=== PATIENT | female | born 1955 | race Caucasian/White ===

== ENCOUNTER 2019-04-03 20:40 | Inpatient (IN) | payer MEDICARE, OTHER ==
[2019-04-03] MEDS ORDERED: MIDAZOLAM 1 MG/ML 5 ML VIAL IV STA (20:54)
[2019-04-03] MEDS ORDERED: ROCURONIUM BROMIDE 10 MG/ML 10 ML VIAL IV STA (20:54)
[2019-04-03 20:59] LABS: Glucose,Whole Blood 186 mg/dL (75-99)
[2019-04-03] MEDS ORDERED: MIDAZOLAM IV ONE (21:00)
[2019-04-03] MEDS ORDERED: SODIUM CHLORIDE 0.9% IV ONE (21:00)
[2019-04-03 21:02] LABS: Basophils # (A) 0.1 k/uL (0-0.2); Basophils % (A) 1 %; Eosinophils # (A) 0.2 k/uL (0-0.7); Eosinophils % (A) 2 %; HCT 44.9 % (34.0-46.0); HGB 14.7 gm/dL (11.4-16.0); Lymphocytes # (A) 5.4 k/uL (1.0-4.8); Lymphocytes % (A) 48 %; MCH 30.3 pg (25.0-35.0); MCHC 32.7 g/dL (31.0-37.0); MCV 92.6 fL (80.0-100.0); Mean Platelet Volume 7.3; Monocytes # (A) 0.4 k/uL (0-1.0); Monocytes % (A) 4 %; Neutrophils # (A) 4.7 k/uL (1.3-7.7); Neutrophils % (A) 42 %; Platelet Count 177 k/uL (150-450); RBC 4.85 m/uL (3.80-5.40); RDW 14.5 % (11.5-15.5); WBC 11.2 k/uL (3.8-10.6)
[2019-04-03 21:12] LABS: Albumin 4.2 g/dL (3.5-5.0); Magnesium 1.1 mg/dL (1.6-2.3); Phosphorus 1.9 mg/dL (2.5-4.5); Potassium 3.9 mmol/L (3.5-5.1); Total Bilirubin 0.9 mg/dL (0.2-1.3); Total Protein 6.9 g/dL (6.3-8.2)
[2019-04-03] MEDS ORDERED: SODIUM CHLORIDE 0.9% 1,000 ML IV ONE ×3 (21:12→23:00)
[2019-04-03 21:20] LABS: Prothrombin Time 10.9 sec (9.0-12.0)
[2019-04-03 21:22] LABS: Partial Thromboplastin Time 21.6 sec (22.0-30.0)
[2019-04-03 21:24] LABS: Poikilocytosis (M) Present
[2019-04-03] MEDS: MIDAZOLAM HCL 50 MG in SODIUM CHLORIDE 0.9% 40 ML IV SCH ×2 (21:28→21:56)
--- NOTE | 2019-04-03 21:29 | XR ---
EXAMINATION TYPE: XR chest 1V portable DATE OF EXAM: 04/03/2019 COMPARISON: NONE HISTORY: Difficulty breathing TECHNIQUE: Single frontal view of the chest is obtained. FINDINGS: Heart is probably enlarged. There is pulmonary vascular congestion. There is endotracheal tube with the tip 4 cm from the katelynn. There is nasogastric tube. Tip is in the body of the stomach. Thoracic aorta is atheromatous. There is no pleural effusion. IMPRESSION: There is probably congestive heart failure. No pleural fluid.
[2019-04-03] MEDS ORDERED: VANCOMYCIN IV PER PHARMACY 1 EACH MISC MISCELLANE PRN (21:35)
[2019-04-03] MEDS ORDERED: PIPERACILLIN-TAZOBACTAM 3.375 GM in SODIUM CHLORIDE 0.9% 100 ML IVPB STA (21:35)
[2019-04-03] MEDS ORDERED: VANCOMYCIN 2,000 MG in SODIUM CHLORIDE 0.9% 500 ML 500 ML IVPB SCH (21:45)
[2019-04-03] MEDS ORDERED: CEFEPIME 2 GM in SODIUM CHLORIDE 0.9% 100 ML IVPB STA (21:49)
--- NOTE | 2019-04-03 21:52 | ED ---
General Adult HPI - General Chief complaint: Neuro Symptoms/Deficit Stated complaint: STEMI Time Seen by Provider: 04/03/19 20:41 Source: family, EMS, RN notes reviewed, old records reviewed Mode of arrival: EMS - History of Present Illness Initial comments: 62-year-old female found by EMS in a parking lot, unresponsive. Patient transported by EMS. No history available from the patient. Ambient temperature 95 with high humidity. Patient was tachycardic by EMS, she mainta ined her airway and oxygenation, she had stable blood pressure during transport. Normal blood glucose by EMS. - Related Data Allergies Allergy/AdvReac Type Severity Reaction Status Date / Time Penicillins Allergy Unknown Verified 04/03/19 21:46 Childhood Review of Systems ROS Statement: Those systems with pertinent positive or pertinent negative responses have been documented in the HPI. ROS Other: All systems not noted in ROS Statement are negative. Past Medical History Past Medical History: Unable to Obtain History of Any Multi-Drug Resistant Organisms: Unobtainable Past Surgical History: Unable to Obtain Past Psychological History: Unable to Obtain Smoking Status: Unknown if ever smoked Past Alcohol Use History: Unable to Obtain General Exam General appearance: obtunded, obese (Unless) Head exam: Present: atraumatic, normocephalic Eye exam: Present: PERRL. Absent: periorbital swelling, periorbital tenderness ENT exam: Present: mucous membranes dry Neck exam: Present: normal inspection. Absent: meningismus Respiratory exam: Present: respiratory distress, decreased breath sounds. Absent: wheezes, rales Cardiovascular Exam: Present: normal rhythm, tachycardia GI/Abdominal exam: Present: soft, distended. Absent: tenderness, guarding, rebound Extremities exam: Present: normal inspection, normal capillary refill. Absent: pedal edema Expanded Eye Response: (2) open to pain Motor Response: (4) withdraws to pain Skin exam: Present: warm, dry. Absent: diaphoretic Course Vital Signs 04/03/19 04/03/19 04/03/19 20:40 20:46 20:57 Temperature 105.4 F H Pulse Rate 138 H 150 H 151 H Respiratory 24 Rate Blood Pressure 160/149 198/72 192/71 O2 Sat by Pulse 91 L 73 L 99 Oximetry 04/03/19 04/03/19 04/03/19 21:06 21:10 21:20 Temperature 108.0 F H Pulse Rate 142 H 140 H 120 H Respiratory 11 L 12 Rate Blood Pressure 186/72 186/72 144/78 O2 Sat by Pulse 100 100 99 Oximetry 04/03/19 04/03/19 04/03/19 21:29 21:30 21:40 Temperature 106.9 F H Pulse Rate 134 H 134 H 130 H Respiratory 14 11 L 11 L Rate Blood Pressure 159/61 159/61 157/68 O2 Sat by Pulse 100 100 100 Oximetry 04/03/19 04/03/19 04/03/19 21:45 21:50 22:00 Temperature 105.1 F H 96.8 F L Pulse Rate 120 H 111 H Respiratory 11 L 12 Rate Blood Pressure 151/76 121/66 O2 Sat by Pulse 99 100 Oximetry 04/03/19 04/03/19 04/03/19 22:10 22:20 22:30 Temperature 101.1 F H Pulse Rate 120 H 118 H 116 H Respiratory 11 L 11 L 12 Rate Blood Pressure 115/87 149/62 144/68 O2 Sat by Pulse 100 99 100 Oximetry 04/03/19 23:12 Temperature 102.9 F H Pulse Rate 98 Respiratory 12 Rate Blood Pressure 122/51 O2 Sat by Pulse 100 Oximetry EKG Findings - EKG Comments: EKG Findings:: EKG: Wide complex tachycardia rate of 140, suspect right bundle- branch block, QRS duration 128, QTC 520. Repeat EKG sinus rhythm with PAC, left atrial enlargement, right bundle branch block, 97 right, OR interval 174, QRS duration 164, QTC 518 Procedures - Intubation Sedative: Versed Mg Given: 5 Paralytic: Rocuronium Mg Given: 50 Laryngoscope: Paulino Size: 3 Assist Device Used: Bougie ET Tube Size: 7.5 ET Tube Uncuffed: No Tube Secured Depth (cm): 22 Tube Secured Location: lips Tube Placement Confirmation: equal breath sounds bilaterally, no breath sounds over epigastrium, confirmation by capnometry Patient Tolerated Procedure: other Intubation Complications: difficult intubation (Difficult intubation, poorly visualized vocal cords, intubated with bougie, required 2 attempts ) Medical Decision Making - Medical Decision Making 62-year-old female presenting with altered level consciousness, patient is minimally responsive, she is intubated upon arrival. She has a heart rate of 140, rectal temperature of 108. Initial concern for profound heatstroke. She has rapid external cooling with ice, cold fluids, rectal probe is placed. After intubation chest x-rays obtained which negative for focal pneumonia, possible mild heart failure. Head CT is performed this is negative for intracranial hemorrhage or mass effect. She has mild leukocytosis, stable hemoglobin, lactic acid 4.5 mild transaminitis, creatinine kinase 159. She has a EKG showing right bundle branch block with no old for comparison. Heart rate does improve with IV hydration and cooling. After external cooling her temperature is down to 100. She's initially started on benzodiazepines including Versed post, Ativan push, and Versed infusion. She will be admitted to ICU. She is given prophylactic antibiotics although I suspect her presentation is more consistent with heatstroke. Case discussed with both admitting physician and pulmonary occupational therapy technician. Heatstroke, respiratory failure requiring mechanical ventilation. - Lab Data Result diagrams: 04/03/19 20:50 04/03/19 20:50 Lab Results 04/03/19 04/03/19 04/03/19 Range/Units 20:50 20:50 20:50 WBC 11.2 H (3.8-10.6) k/uL RBC 4.85 (3.80-5.40) m/uL Hgb 14.7 (11.4-16.0) gm/dL Hct 44.9 (34.0-46.0) % MCV 92.6 (80.0-100.0) fL MCH 30.3 (25.0-35.0) pg MCHC 32.7 (31.0-37.0) g/dL RDW 14.5 (11.5-15.5) % Plt Count 177 (150-450) k/uL Neutrophils % 42 % Lymphocytes % 48 % Monocytes % 4 % Eosinophils % 2 % Basophils % 1 % Neutrophils # 4.7 (1.3-7.7) k/uL Lymphocytes # 5.4 H (1.0-4.8) k/uL Monocytes # 0.4 (0-1.0) k/uL Eosinophils # 0.2 (0-0.7) k/uL Basophils # 0.1 (0-0.2) k/uL Manual Slide Review Performed Poikilocytosis (manual Present PT (9.0-12.0) sec INR (<1.2) APTT (22.0-30.0) sec Sodium 139 (137-145) mmol/L Potassium 3.9 (3.5-5.1) mmol/L Chloride 98 (98-107) mmol/L Carbon Dioxide 27 (22-30) mmol/L Anion Gap 14 mmol/L BUN 10 (7-17) mg/dL Creatinine 0.71 (0.52-1.04) mg/dL Est GFR (CKD-EPI)AfAm 72 (>60 ml/min/1.73 sqM) Est GFR (CKD-EPI)NonAf 62 (>60 ml/min/1.73 sqM) Glucose 181 H (74-99) mg/dL POC Glucose (mg/dL) (75-99) mg/dL POC Glu Slat Twister ID Plasma Lactic Acid Virgilio 4.5 H* (0.7-2.0) mmol/L Calcium 9.0 (8.4-10.2) mg/dL Phosphorus 1.9 L (2.5-4.5) mg/dL Magnesium 1.1 L (1.6-2.3) mg/dL Total Bilirubin 0.9 (0.2-1.3) mg/dL AST 127 H (14-36) U/L ALT 60 H (9-52) U/L Alkaline Phosphatase 84 (38-126) U/L Creatine Kinase 159 H (30-135) U/L Troponin I (0.000-0.034) ng/mL NT-Pro-B Natriuret Pep pg/mL Total Protein 6.9 (6.3-8.2) g/dL Albumin 4.2 (3.5-5.0) g/dL Urine Color Urine Appearance (Clear) Urine pH (5.0-8.0) Ur Specific [place] (1.001-1.035) Urine Protein (Negative) Urine Glucose (UA) (Negative) Urine Ketones (Negative) Urine Blood (Negative) Urine Nitrite (Negative) Urine Bilirubin (Negative) Urine Urobilinogen (<2.0) mg/dL Ur Leukocyte Esterase (Negative) Urine WBC (0-5) /hpf Amorphous Sediment (None) /hpf Hyaline Casts (0-2) /lpf Urine Mucus (None) /hpf Blood Type Blood Type Recheck Antibody Screen Spec Expiration Date 04/03/19 04/03/19 04/03/19 Range/Units 20:50 20:50 20:50 WBC (3.8-10.6) k/uL RBC (3.80-5.40) m/uL Hgb (11.4-16.0) gm/dL Hct (34.0-46.0) % MCV (80.0-100.0) fL MCH (25.0-35.0) pg MCHC (31.0-37.0) g/dL RDW (11.5-15.5) % Plt Count (150-450) k/uL Neutrophils % % Lymphocytes % % Monocytes % % Eosinophils % % Basophils % % Neutrophils # (1.3-7.7) k/uL Lymphocytes # (1.0-4.8) k/uL Monocytes # (0-1.0) k/uL Eosinophils # (0-0.7) k/uL Basophils # (0-0.2) k/uL Manual Slide Review Poikilocytosis (manual PT 10.9 (9.0-12.0) sec INR 1.0 (<1.2) APTT 21.6 L (22.0-30.0) sec Sodium (137-145) mmol/L Potassium (3.5-5.1) mmol/L Chloride (98-107) mmol/L Carbon Dioxide (22-30) mmol/L Anion Gap mmol/L BUN (7-17) mg/dL Creatinine (0.52-1.04) mg/dL Est GFR (CKD-EPI)AfAm (>60 ml/min/1.73 sqM) Est GFR (CKD-EPI)NonAf (>60 ml/min/1.73 sqM) Glucose (74-99) mg/dL POC Glucose (mg/dL) (75-99) mg/dL POC Glu Slat Twister ID Plasma Lactic Acid Virgilio (0.7-2.0) mmol/L Calcium (8.4-10.2) mg/dL Phosphorus (2.5-4.5) mg/dL Magnesium (1.6-2.3) mg/dL Total Bilirubin (0.2-1.3) mg/dL AST (14-36) U/L ALT (9-52) U/L Alkaline Phosphatase (38-126) U/L Creatine Kinase (30-135) U/L Troponin I 0.024 (0.000-0.034) ng/mL NT-Pro-B Natriuret Pep 240 pg/mL Total Protein (6.3-8.2) g/dL Albumin (3.5-5.0) g/dL Urine Color Urine Appearance (Clear) Urine pH (5.0-8.0) Ur Specific [place] (1.001-1.035) Urine Protein (Negative) Urine Glucose (UA) (Negative) Urine Ketones (Negative) Urine Blood (Negative) Urine Nitrite (Negative) Urine Bilirubin (Negative) Urine Urobilinogen (<2.0) mg/dL Ur Leukocyte Esterase (Negative) Urine WBC (0-5) /hpf Amorphous Sediment (None) /hpf Hyaline Casts (0-2) /lpf Urine Mucus (None) /hpf Blood Type Blood Type Recheck Antibody Screen Spec Expiration Date 04/03/19 04/03/19 04/03/19 Range/Units 20:50 20:58 21:33 WBC (3.8-10.6) k/uL RBC (3.80-5.40) m/uL Hgb (11.4-16.0) gm/dL Hct (34.0-46.0) % MCV (80.0-100.0) fL MCH (25.0-35.0) pg MCHC (31.0-37.0) g/dL RDW (11.5-15.5) % Plt Count (150-450) k/uL Neutrophils % % Lymphocytes % % Monocytes % % Eosinophils % % Basophils % % Neutrophils # (1.3-7.7) k/uL Lymphocytes # (1.0-4.8) k/uL Monocytes # (0-1.0) k/uL Eosinophils # (0-0.7) k/uL Basophils # (0-0.2) k/uL Manual Slide Review Poikilocytosis (manual PT (9.0-12.0) sec INR (<1.2) APTT (22.0-30.0) sec Sodium (137-145) mmol/L Potassium (3.5-5.1) mmol/L Chloride (98-107) mmol/L Carbon Dioxide (22-30) mmol/L Anion Gap mmol/L BUN (7-17) mg/dL Creatinine (0.52-1.04) mg/dL Est GFR (CKD-EPI)AfAm (>60 ml/min/1.73 sqM) Est GFR (CKD-EPI)NonAf (>60 ml/min/1.73 sqM) Glucose (74-99) mg/dL POC Glucose (mg/dL) 186 H (75-99) mg/dL POC Glu Slat Twister ID Sara Driscoll Plasma Lactic Acid Virgilio (0.7-2.0) mmol/L Calcium (8.4-10.2) mg/dL Phosphorus (2.5-4.5) mg/dL Magnesium (1.6-2.3) mg/dL Total Bilirubin (0.2-1.3) mg/dL AST (14-36) U/L ALT (9-52) U/L Alkaline Phosphatase (38-126) U/L Creatine Kinase (30-135) U/L Troponin I (0.000-0.034) ng/mL NT-Pro-B Natriuret Pep pg/mL Total Protein (6.3-8.2) g/dL Albumin (3.5-5.0) g/dL Urine Color Yellow Urine Appearance Cloudy H (Clear) Urine pH 5.5 (5.0-8.0) Ur Specific [place] 1.012 (1.001-1.035) Urine Protein 2+ H (Negative) Urine Glucose (UA) Negative (Negative) Urine Ketones Negative (Negative) Urine Blood Small H (Negative) Urine Nitrite Negative (Negative) Urine Bilirubin Negative (Negative) Urine Urobilinogen <2.0 (<2.0) mg/dL Ur Leukocyte Esterase Negative (Negative) Urine WBC <1 (0-5) /hpf Amorphous Sediment Rare H (None) /hpf Hyaline Casts 2 (0-2) /lpf Urine Mucus Rare H (None) /hpf Blood Type O Negative Blood Type Recheck CABO Indicated Antibody Screen NEGATIVE Spec Expiration Date 04/06/2019 - 235 Critical Care Time Critical Care Time: Yes Total Critical Care Time: 95 Disposition Clinical Impression: Heat stroke, Respiratory failure Disposition: ADMITTED IP TO THIS HOSP Condition: Serious Is patient prescribed a controlled substance at d/c from ED?: No Referrals: None,Stated [Primary Care Provider] - 1-2 days Time of Disposition: 23:39
[2019-04-03] MEDS ORDERED: LORazepam 2 MG/ML INJ IV STA (22:08)
[2019-04-03 22:10] LABS: Amorphous Sediment,Urine Rare /hpf; Appearance,Urine Cloudy (Clear); Bilirubin,Urine Negative (Negative); Blood,Urine Small (Negative); Color,Urine Yellow; Glucose,Urine (UA) Negative (Negative); Hyaline Casts,Urine 2 /lpf (0-2); Ketones,Urine Negative (Negative); Leukocyte Esterase,Urine Negative (Negative); Mucus,Urine Rare /hpf; Nitrite,Urine Negative (Negative); PH, Urine 5.5 (5.0-8.0); Protein,Urine 2+ (Negative); Specific Gravity,Urine 1.012 (1.001-1.035); Urobilinogen,Urine <2.0 mg/dL (<2.0); WBC,Urine <1 /hpf (0-5)
--- NOTE | 2019-04-03 23:04 | CT ---
EXAM: CT Head Without Intravenous Contrast CLINICAL HISTORY: ITS.REASON CT Reason: weakness TECHNIQUE: Axial computed tomography images of the head/brain without intravenous contrast. This CT exam was performed using one or more of the following dose reduction techniques: automated exposure control, adjustment of the mA and/or kV according to patient size, and/or use of iterative reconstruction technique. COMPARISON: No relevant prior studies available. FINDINGS: Brain: No hemorrhage. No edema. Ventricles: Unremarkable. No ventriculomegaly. Bones/joints: No acute fracture. Soft tissues: Unremarkable. Sinuses: No fluid levels. Mastoid air cells: Nonspecific soft tissue in the right mastoid cavity IMPRESSION: No acute findings.
[2019-04-03] MEDS: MAGNESIUM SULFATE-D5W PMX 1 GM in DEXTROSE/WATER 1 100ML.BAG IVPB SCH (23:07)
[2019-04-03] MEDS ORDERED: NALOXONE 0.4 MG/ML 1 ML VIAL IV PRN (23:24)
[2019-04-03 23:42] LABS: ABG Base Excess -2.5 mmol/L; ABG HCO3 24 mmol/L (21-25); ABG Oxygen Saturation 99.4 % (94-97); ABG PCO2 52 mmHg (35-45); ABG PH 7.28 (7.35-7.45); ABG PO2 181 mmHg (83-108); ABG TCO2 26 mmol/L (19-24); Allen Test Performed? Yes
[2019-04-04] MEDS: MAGNESIUM SULFATE-D5W PMX 1 GM in DEXTROSE/WATER 1 100ML.BAG IVPB SCH ×3 (00:01→03:00)
[2019-04-04] MEDS: SODIUM CHLORIDE 0.9% 1,000 ML IV SCH ×4 (00:10→23:52)
[2019-04-04 00:32] LABS: Glucose,Whole Blood 223 mg/dL (75-99)
[2019-04-04] MEDS ORDERED: LORazepam 2 MG/ML INJ IV STA (00:39)
--- NOTE | 2019-04-04 01:00 | P.HPIM ---
History of Present Illness H&P Date: 04/04/19 Chief Complaint: Found down by police 62-year-old female apparently was a local [place]. She was found by police unconscious and was brought to the hospital. Initially was thought to have cardiac event however upon obtaining vital signs she was found to be hyperthermic with rectal temperature of 108 patient was suspected to have a heat stroke she was very dry. Patient was resuscitated given aggressive IV fluid hydration was actively bringing her temperature down. Patient was intubated due to being unconscious unable to protect airways she was found to be in acute hypoxic and hypercapnic respiratory failure. Computed tomography scan of the head showed no acute abnormalities Chest x-ray was negative Review of Systems ROS unobtainable: due to mental status Past Medical History Past Medical History: Unable to Obtain History of Any Multi-Drug Resistant Organisms: Unobtainable Past Surgical History: Unable to Obtain Past Psychological History: Unable to Obtain Smoking Status: Unknown if ever smoked Past Alcohol Use History: Unable to Obtain - Past Family History Family Family Medical History: Unable to Obtain Medications and Allergies Home Medications and Allergies Comment(s): Cannot obtain a verify this point due to patient mental status Allergies Allergy/AdvReac Type Severity Reaction Status Date / Time Penicillins Allergy Unknown Verified 04/03/19 21:46 Childhood Physical Exam Vitals: Vital Signs Temp Pulse Pulse Resp BP Pulse Ox 04/04/19 00:18 102.2 F H 86 24 113/51 97 04/03/19 23:43 110 H 28 H 04/03/19 23:30 96 30 H 111/50 100 04/03/19 23:20 97 28 H 122/51 100 04/03/19 23:12 102.9 F H 98 12 122/51 100 04/03/19 22:30 101.1 F H 116 H 12 144/68 100 04/03/19 22:20 118 H 11 L 149/62 99 04/03/19 22:10 120 H 11 L 115/87 100 04/03/19 22:00 96.8 F L 111 H 12 121/66 100 04/03/19 21:50 120 H 11 L 151/76 99 04/03/19 21:45 105.1 F H 04/03/19 21:40 130 H 11 L 157/68 100 04/03/19 21:30 134 H 11 L 159/61 100 04/03/19 21:29 106.9 F H 134 H 14 159/61 100 04/03/19 21:20 120 H 12 144/78 99 04/03/19 21:10 108.0 F H 140 H 11 L 186/72 100 04/03/19 21:06 142 H 186/72 100 04/03/19 20:57 151 H 192/71 99 04/03/19 20:46 150 H 198/72 73 L 04/03/19 20:40 105.4 F H 138 H 24 160/149 91 L Intake and Output 04/03/19 04/03/19 04/04/19 14:59 22:59 06:59 Intake Total 17.5 Output Total 400 Balance -400 17.5 Intake: Intake, IV Titration 17.5 Amount Midazolam HCl 50 mg In 17.5 Sodium Chloride 0.9% 40 ml @ 1 MG/HR 1 mls/hr IV .Q24H [facility] Rx#:[id number] Output: Urine 400 Uretheral (Fischer) 400 Other: Weight 130.453 kg Constitutional: Patient intubated and sedated, ventilatory support, Fischer catheter in place Eyes: Anicteric sclerae, moist conjunctiva, Pupils equal round reactive to light ENMT: NC/AT Could not examine oropharynx due to OT tube Neck: Supple, FROM, no masses, or JVD No carotid bruits No thyromegaly Lungs: Clear to auscultation Clear to percussion Patient sedated on ventilator support Cardiovascular: Heart regular in rate and rhythm, No murmurs, gallops, or rubs No peripheral edema Abdominal: Soft, obese limiting exam Nontender, no guarding, rebound or rigidity Abdomen moving with respiration Normoactive bowel sounds No hepatomegaly, No splenomegaly No palpable mass No abdominal wall hernia noted Skin: No dry skin, currently normal temperature to the touch, No induration No subcutaneous nodules No rash, lesions No ulcers Extremities: No digital cyanosis No clubbing Pedal pulses intact on the right foot, left foot is in surgical boot due to recent surgery Radial pulses intact and symmetrical Psychiatric: Intubated and deeply sedated Neuro cannot perform neuro exam at this point due to patient being intubated and deeply sedated Lymphatics: no palpable cervical or supraclavicular , or inguinal lymph nodes Results CBC & Chem 7: 04/03/19 20:50 07/05/19 20:50 Labs: Abnormal Lab Results - Last 24 Hours (Table) 04/03/19 04/03/19 04/03/19 Range/Units 20:50 20:50 20:50 WBC 11.2 H (3.8-10.6) k/uL Lymphocytes # 5.4 H (1.0-4.8) k/uL APTT (22.0-30.0) sec ABG pH (7.35-7.45) ABG pCO2 (35-45) mmHg ABG pO2 (83-108) mmHg ABG Total CO2 (19-24) mmol/L ABG O2 Saturation (94-97) % Glucose 181 H (74-99) mg/dL POC Glucose (mg/dL) (75-99) mg/dL Plasma Lactic Acid Virgilio 4.5 H* (0.7-2.0) mmol/L Phosphorus 1.9 L (2.5-4.5) mg/dL Magnesium 1.1 L (1.6-2.3) mg/dL AST 127 H (14-36) U/L ALT 60 H (9-52) U/L Creatine Kinase 159 H (30-135) U/L Urine Appearance (Clear) Urine Protein (Negative) Urine Blood (Negative) Amorphous Sediment (None) /hpf Urine Mucus (None) /hpf 04/03/19 04/03/19 04/03/19 Range/Units 20:50 20:58 21:33 WBC (3.8-10.6) k/uL Lymphocytes # (1.0-4.8) k/uL APTT 21.6 L (22.0-30.0) sec ABG pH (7.35-7.45) ABG pCO2 (35-45) mmHg ABG pO2 (83-108) mmHg ABG Total CO2 (19-24) mmol/L ABG O2 Saturation (94-97) % Glucose (74-99) mg/dL POC Glucose (mg/dL) 186 H (75-99) mg/dL Plasma Lactic Acid Virgilio (0.7-2.0) mmol/L Phosphorus (2.5-4.5) mg/dL Magnesium (1.6-2.3) mg/dL AST (14-36) U/L ALT (9-52) U/L Creatine Kinase (30-135) U/L Urine Appearance Cloudy H (Clear) Urine Protein 2+ H (Negative) Urine Blood Small H (Negative) Amorphous Sediment Rare H (None) /hpf Urine Mucus Rare H (None) /hpf 04/03/19 04/04/19 Range/Units 23:39 00:13 WBC (3.8-10.6) k/uL Lymphocytes # (1.0-4.8) k/uL APTT (22.0-30.0) sec ABG pH 7.28 L (7.35-7.45) ABG pCO2 52 H (35-45) mmHg ABG pO2 181 H (83-108) mmHg ABG Total CO2 26 H (19-24) mmol/L ABG O2 Saturation 99.4 H (94-97) % Glucose (74-99) mg/dL POC Glucose (mg/dL) 223 H (75-99) mg/dL Plasma Lactic Acid Virgilio (0.7-2.0) mmol/L Phosphorus (2.5-4.5) mg/dL Magnesium (1.6-2.3) mg/dL AST (14-36) U/L ALT (9-52) U/L Creatine Kinase (30-135) U/L Urine Appearance (Clear) Urine Protein (Negative) Urine Blood (Negative) Amorphous Sediment (None) /hpf Urine Mucus (None) /hpf Assessment and Plan Assessment: 62-year-old female was found down by police in the outdoors at the local fair unconscious. Patient admitted as an inpatient with anticipated to stay more than 48 hours due to suspected he stroke patient was intubated due to acute metabolic encephalopathy and acute hypoxic/hypercapnic respiratory failure Plan: heat stroke acute metabolic encephalopathy acute hypoxic ,/ hypercapnic respiratory failure lactic acidosis hypomagnesemia/hypophosphatemia diabetes mellitus CAMELIA morbid obesity Patient was intubated in the ED and currently sedated Aggressive IV fluid hydration External cooling of Patient temperature Close monitoring of vital signs and temperature Admission to the ICU Replace electrolytes Ventilator care Empiric antibiotic therapy Follow-up cultures Surrogate decision-maker: Patient's Sr. CODE STATUS: Full code DVT prophylaxis: Heparin subcu Discussed with: Patient, ER, RN Anticipated discharge: 48-[address]: *Pending clinical course A total of 60 minutes was spent on the care of this complex patient more than 50% of the time was spent in counseling and care coordination.
[2019-04-04 01:02] LABS: Glucose,Whole Blood 235 mg/dL (75-99)
[2019-04-04] MEDS: MIDAZOLAM HCL 50 MG in SODIUM CHLORIDE 0.9% 40 ML IV SCH (01:11)
[2019-04-04] MEDS: PROPOFOL 1,000 MG in EMPTY BAG 1 BAG IV SCH ×4 (02:00→10:22)
[2019-04-04 02:21] LABS: Amphetamine Screen,Urine Not Detected (NotDetected); Barbiturate Screen,Urine Not Detected (NotDetected); Benzodiazepines Screen,Urine Detected (NotDetected); Cocaine Screen,Urine Not Detected (NotDetected); Methadone Screen, Urine Not Detected (NotDetected); Opiate Screen,Urine Detected (NotDetected); Oxycodone Screen, Urine Not Detected (NotDetected); Phencyclidine Screen,Urine Not Detected (NotDetected); Tricyclic Antidepressant,Urine Not Detected (NotDetected); Urn Cannabinoid Scrn Not Detected (NotDetected)
[2019-04-04 04:47] LABS: ABG Base Excess -1.8 mmol/L; ABG HCO3 25 mmol/L (21-25); ABG Oxygen Saturation 98.1 % (94-97); ABG PCO2 53 mmHg (35-45); ABG PH 7.28 (7.35-7.45); ABG PO2 108 mmHg (83-108); ABG TCO2 27 mmol/L (19-24); Allen Test Performed? Yes
[2019-04-04 06:05] LABS: Glucose,Whole Blood 256 mg/dL (75-99)
[2019-04-04] MEDS: INSULIN ASPART (NovoLOG) 100 UNIT/ML VIAL SQ SCH ×4 (06:06→23:58)
--- NOTE | 2019-04-04 07:22 | XR ---
EXAMINATION TYPE: XR chest 1V portable DATE OF EXAM: 04/04/2019 COMPARISON: 04/03/2019 HISTORY: Shortness of breath TECHNIQUE: Single frontal view of the chest is obtained. FINDINGS: ET tube and NG tube stable. Atherosclerotic change aorta. Mild cardiomegaly but consolidat ion small effusion. Interstitial prominence. No pneumothorax. IMPRESSION: Stable pleural-parenchymal changes correlate for CHF. Otherwise consider pneumonia.
[2019-04-04] MEDS ORDERED: INSULIN ASPART (NovoLOG) 100 UNIT/ML VIAL SQ SCH (07:30)
[2019-04-04 07:41] LABS: ALT 78 U/L (9-52); AST 130 U/L (14-36); African American GFR (CKD) >90 (>60 ml/min/1.73 sqM); Albumin 3.6 g/dL (3.5-5.0); Alkaline Phosphatase 55 U/L (38-126); Anion Gap 14 mmol/L; Blood Urea Nitrogen 18 mg/dL (7-17); Calcium 8.1 mg/dL (8.4-10.2); Carbon Dioxide 19 mmol/L (22-30); Chloride 109 mmol/L (98-107); Glucose 218 mg/dL (74-99); Magnesium 2.4 mg/dL (1.6-2.3); Phosphorus 4.6 mg/dL (2.5-4.5); Sodium 142 mmol/L (137-145); Total Bilirubin 1.1 mg/dL (0.2-1.3); Total Protein 6.2 g/dL (6.3-8.2)
[2019-04-04 07:46] LABS: HCT 42.1 % (34.0-46.0); HGB 13.8 gm/dL (11.4-16.0); Hypochromasia Slight; MCH 31.8 pg (25.0-35.0); MCHC 32.8 g/dL (31.0-37.0); MCV 96.7 fL (80.0-100.0); Mean Platelet Volume 7.4; RBC 4.35 m/uL (3.80-5.40); RDW 14.5 % (11.5-15.5); WBC 9.8 k/uL (3.8-10.6)
[2019-04-04] MEDS ORDERED: PIPERACILLIN-TAZOBACTAM 3.375 GM in SODIUM CHLORIDE 0.9% 100 ML IVPB SCH (08:00)
[2019-04-04 08:01] LABS: Potassium 4.8 mmol/L (3.5-5.1)
[2019-04-04 08:21] LABS: Platelet Count 74 k/uL (150-450)
[2019-04-04] MEDS: HEPARIN SODIUM,PORCINE 5,000 UNIT/ML 1 ML VIAL SQ SCH ×2 (08:32→15:58)
[2019-04-04] MEDS: CHLORHEXIDINE GLUCONATE 15 ML CUP MUCOUS MEM SCH ×2 (08:32→23:52)
[2019-04-04] MEDS: VANCOMYCIN 2,000 MG in SODIUM CHLORIDE 0.9% 500 ML 500 ML IVPB SCH (12:25)
[2019-04-04 12:27] LABS: Glucose,Whole Blood 128 mg/dL (75-99)
[2019-04-04 12:29] LABS: ABG HCO3 28 mmol/L (21-25); ABG Oxygen Saturation 98.3 % (94-97); ABG PCO2 51 mmHg (35-45); ABG PH 7.34 (7.35-7.45); ABG PO2 118 mmHg (83-108); ABG TCO2 29 mmol/L (19-24); Allen Test Performed? Yes
--- NOTE | 2019-04-04 12:45 | P.PN ---
Progress Note - Text Progress Note Date: 04/04/19 62-year-old female with unknown PMH is brought to the ED by EMS after being found by police in the parking lot, unresponsive. In the ED, she was found to have an altered level of consciousness and was minimally responsive, intubated upon arrival. Rectal temperature of 108F. Rapid cooling with ice and cold fluids was started and patient was transferred to the ICU. She was started on vancomycin and cefepime empirically for concerns of sepsis. Patient was seen and examined. No acute events overnight. Continues to be on the ventilator. Per RN, patient is responding to commands and an attempt might be made for vent liberation by the ICU attending. This morning chest x-ray shows stable changes correlating with CHF, consider pneumonia. Patient is on full ventilator settings with tidal volume 450, FiO2 50% and PEEP of 5. Her temperature is currently 99F. Heatstroke Acute metabolic encephalopathy likely secondary to hyperthermia Acute hypoxic hypercarbic respiratory failure Lactic acidosis Transaminitis with hypocalcemia and hyperphosphatemia and hypermagnesemia Plans: Plans for full ventilator support, attempted to be weaned by ICU attending. Telemetry monitoring. Follow ABG. Lactic acid 4.5 to 3.6. Likely secondary to dehydration. ABG showed respiratory metabolic acidosis. Plans: Full ventilator support to maintain oxygenation. Continue normal saline at 150 mL per hour. Follow repeat lactic acid. No signs of infection, could probably discontinue IV antibiotics, will wait on ICU attending recommendations. AST 130, ALT 78, phosphorus of 4.6, magnesium 2.4 and calcium 8.1. Possibly related to muscle damage. Renal function is within normal limits. Plans: Continue IVF as mentioned above. Daily CMP. Follow creatinine kinase. Monitor and replace electrolytes. Patient is pending clinical improvement. Her prognosis is guarded at this time. Attempt vent liberation as per ICU attending.
--- NOTE | 2019-04-04 13:08 | P.CNPUL ---
History of Present Illness Consult date: 04/04/19 Chief complaint: Hyperthermia History of present illness: 62-year-old female apparently was a local fair for march celebrations. She was found by police unconscious and was brought to the hospital. Initially was thought to have cardiac event however upon obtaining vital signs she was found to be hyperthermic with rectal temperature of 108 patient was suspected to have a heat stroke she was very dry. Patient was resuscitated given aggressive IV fluid hydration was actively bringing her temperature down. Patient was intubated due to being unconscious unable to protect airways she was found to be in acute hypoxic and hypercapnic respiratory failure. Computed tomography scan of the head showed no acute abnormalities. The chest x-ray is negative. Urine toxin was positive for opiates and benzodiazepines. Otherwise no other street drugs. Overnight the patient was kept on a mechanical ventilator. She was well sedated with propofol and she was, comfortable. She was able to squeeze to deep painful stimulation this morning. A sedation holiday was given. Meanwhile, on a mechanical ventilator with an FiO2 of 50% and PEEP of 5, the patient was also on a tidal volume of 450 with a rate of 16 and the blood gas showed a pH of 7.28 with a pCO2 of 53 and pO2 of 108. Rest of the blood work showed no significant abnormalities in no evidence of rhabdomyolysis. CPK was within normal limits. White cell count is at 9.8. Pl atelet count dropped down to 74,000. Urinalysis is negative. No intake of any neuroleptics. No intake of any anticholinergic or exposure to a anticholinergic agents. No signs of any septicemia at this point in time. Morning temperature is down to 99.0. I was able to discontinue the sedation. Assess the patient's mental status to check weaning parameters which showed a tidal volume of 494 wi th a vital Of 1.2 L and RSBI of 34 with a minute ventilation of 12.6. The blood gases while on CPAP showed a pH of 7.34 with a pCO2 of 51 and pO2 of 118.. No other information is available on this patient's history and she came in initially as a [facility] Review of Systems ROS unobtainable: due to endotracheal tube Past Medical History Past Medical History: Unable to Obtain Additional Past Medical History / Comment(s): Not available at a time of admission History of Any Multi-Drug Resistant Organisms: Unobtainable Past Surgical History: Unable to Obtain Additional Past Surgical History / Comment(s): Not available at time of admission and on examination there is evidence of bilateral mastectomy and transmetatarsal amputation of the left foot Past Psychological History: Unable to Obtain Smoking Status: Unknown if ever smoked Past Alcohol Use History: Unable to Obtain - Past Family History Family Family Medical History: Unable to Obtain Medications and Allergies Home Medications Medication Instructions Recorded Confirmed Type Unable To Assess [Unable to Assess] 04/04/19 04/04/19 History Allergies Allergy/AdvReac Type Severity Reaction Status Date / Time Penicillins Allergy Unknown Verified 04/03/19 21:46 Childhood Physical Exam Vitals: Vital Signs Temp Pulse Pulse Resp BP Pulse Ox 04/04/19 12:00 99.0 F 85 22 129/52 98 04/04/19 11:30 82 16 130/58 97 04/04/19 11:00 83 20 120/45 98 04/04/19 10:30 81 21 112/45 99 04/04/19 10:00 79 18 105/47 99 04/04/19 09:30 78 17 113/49 98 04/04/19 09:00 78 14 101/49 97 04/04/19 08:30 77 14 101/44 98 04/04/19 08:00 100.1 F H 78 14 108/49 98 04/04/19 07:30 81 14 103/48 98 04/04/19 07:00 100.3 F H 82 18 109/48 98 04/04/19 06:30 84 21 114/58 98 04/04/19 06:00 100.4 F H 82 22 102/45 98 04/04/19 05:30 81 24 103/42 98 04/04/19 05:00 100.4 F H 81 19 101/45 97 04/04/19 04:30 80 23 97/47 97 04/04/19 04:00 80 19 94/43 97 04/04/19 03:30 80 20 98/42 97 04/04/19 03:00 100.9 F H 80 20 88/42 97 04/04/19 02:45 81 21 96/43 97 04/04/19 02:30 101.1 F H 82 21 91/42 97 04/04/19 02:15 82 22 98/45 97 04/04/19 02:00 85 24 120/50 97 04/04/19 01:45 101.4 F H 90 17 120/49 98 04/04/19 01:30 86 23 102/45 97 04/04/19 01:15 84 26 H 107/51 96 04/04/19 01:00 84 29 H 100/50 96 04/04/19 00:58 84 22 97 04/04/19 00:30 101.4 F H 87 31 H 120/56 98 04/04/19 00:18 102.2 F H 86 24 113/51 97 04/04/19 00:15 87 32 H 113/51 97 04/04/19 00:00 90 29 H 112/55 96 04/03/19 23:45 101.7 F H 93 29 H 118/53 04/03/19 23:43 110 H 28 H 04/03/19 23:30 96 30 H 111/50 100 04/03/19 23:20 97 28 H 122/51 100 04/03/19 23:12 102.9 F H 98 12 122/51 100 04/03/19 22:30 101.1 F H 116 H 12 144/68 100 04/03/19 22:20 118 H 11 L 149/62 99 04/03/19 22:10 120 H 11 L 115/87 100 04/03/19 22:00 111 H 12 121/66 100 04/03/19 21:50 120 H 11 L 151/76 99 04/03/19 21:45 105.1 F H 04/03/19 21:40 130 H 11 L 157/68 100 04/03/19 21:30 134 H 11 L 159/61 100 04/03/19 21:29 106.9 F H 134 H 14 159/61 100 04/03/19 21:20 120 H 12 144/78 99 04/03/19 21:10 108.0 F H 140 H 11 L 186/72 100 04/03/19 21:06 142 H 186/72 100 04/03/19 20:57 151 H 192/71 99 04/03/19 20:46 150 H 198/72 73 L 04/03/19 20:40 105.4 F H 138 H 24 160/149 91 L Intake and Output 04/03/19 04/04/19 04/04/19 22:59 06:59 14:59 Intake Total 0708.322 3362.407 Output Total 400 2542 1280 Balance -400 -688.094 -274.593 Intake: IV 1700 900 Magnesium Sulfate-D5w Pmx 300 1 gm In Dextrose/Water 1 100ml.bag @ 100 mls/hr IVPB Q1H NANC[facility] Rx#: [id number] Sodium Chloride 0.9% 1, 900 900 000 ml @ 150 mls/hr IV . Q6H40M NANCY Rx#:[id number] Vancomycin 2,000 mg In 500 Sodium Chloride 0.9% 500 ml 500 ml @ 167 mls/hr IVPB Q16H NANCY Rx#: [id number] Intake, IV Titration 153.906 105.407 Amount Midazolam HCl 50 mg In 30.033 Sodium Chloride 0.9% 40 ml @ 1 MG/HR 1 mls/hr IV .Q24H NANCY Rx#:[id number] Propofol 1,000 mg In 123.873 105.407 Empty Bag 1 bag @ Titrate IV .Q0M NANCY Rx#: [id number] Output: Urine 166 333 5824 Uretheral (Fischer) 400 Stool 2000 Other: Voiding Method Indwelling Catheter Indwelling Catheter # Bowel Movements 1 Weight 130.453 kg Gen. appearance, comfortable likely distress orogastric and orotracheal tube are both in place. She is following commands and squeezing while on a mechanical ventilator. She is a process of getting a sedation holiday and CPAP trial Head exam was generally normal. There was no scleral icterus or corneal arcus. Mucous membranes were moist. Neck was supple and without jugular venous distension, thyromegaly, or carotid bruits. Carotids were easily palpable bilaterally. There was no adenopathy. The patient has bilateral mastectomy Lungs were clear to auscultation and percussion, and with normal diaphragmatic excursion. No wheezes or rales were noted. Cardiac exam revealed the PMI to be normally situated and sized. The rhythm was regular and no extrasystoles were noted during several minutes of auscultation. The first and second heart sounds were normal and physiologic splitting of the second heart sound was noted. There were no murmurs, rubs, clicks, or gallops. Abdominal exam revealed normal bowel sounds. The abdomen was soft, non-tender, and without masses, organomegaly, or appreciable enlargement of the abdominal aorta. Examination of the extremities revealed easily palpable radial, femoral and pedal pulses. There was no cyanosis, clubbing or edema. The patient has a metatarsal amputation of the left foot Examination of the skin revealed no evidence of significant rashes, suspicious appearing nevi or other concerning lesions. Neurologic exam is nonfocal. Results - Laboratory Findings CBC and BMP: 04/04/19 07:05 04/04/19 06:10 ABG ABG pH 7.34 (7.35-7.45) L 04/04/19 12:27 ABG pCO2 51 mmHg (35-45) H 04/04/19 12:27 ABG pO2 118 mmHg (83-108) H 04/04/19 12:27 ABG O2 Saturation 98.3 % (94-97) H 04/04/19 12:27 PT/INR, D-dimer PT 10.9 sec (9.0-12.0) 04/03/19 20:50 INR 1.0 (<1.2) 04/03/19 20:50 Abnormal lab findings: Abnormal Labs 04/03/19 04/03/19 04/03/19 20:50 20:50 20:50 WBC 11.2 H Plt Count Lymphocytes # 5.4 H APTT ABG pH ABG pCO2 ABG pO2 ABG HCO3 ABG Total CO2 ABG O2 Saturation Chloride Carbon Dioxide BUN Glucose 181 H POC Glucose (mg/dL) Plasma Lactic Acid Virgilio 4.5 H* Calcium Phosphorus 1.9 L Magnesium 1.1 L AST 127 H ALT 60 H Creatine Kinase 159 H Total Protein Urine Appearance Urine Protein Urine Blood Amorphous Sediment Urine Mucus Urine Opiates Screen U Benzodiazepines Scrn 04/03/19 04/03/19 04/03/19 20:50 20:58 21:33 WBC Plt Count Lymphocytes # APTT 21.6 L ABG pH ABG pCO2 ABG pO2 ABG HCO3 ABG Total CO2 ABG O2 Saturation Chloride Carbon Dioxide BUN Glucose POC Glucose (mg/dL) 186 H Plasma Lactic Acid Virgilio Calcium Phosphorus Magnesium AST ALT Creatine Kinase Total Protein Urine Appearance Cloudy H Urine Protein 2+ H Urine Blood Small H Amorphous Sediment Rare H Urine Mucus Rare H Urine Opiates Screen U Benzodiazepines Scrn 04/03/19 04/04/19 04/04/19 23:39 00:13 00:55 WBC Plt Count Lymphocytes # APTT ABG pH 7.28 L ABG pCO2 52 H ABG pO2 181 H ABG HCO3 ABG Total CO2 26 H ABG O2 Saturation 99.4 H Chloride Carbon Dioxide BUN Glucose POC Glucose (mg/dL) 223 H 235 H Plasma Lactic Acid Virgilio Calcium Phosphorus Magnesium AST ALT Creatine Kinase Total Protein Urine Appearance Urine Protein Urine Blood Amorphous Sediment Urine Mucus Urine Opiates Screen U Benzodiazepines Scrn 04/04/19 04/04/19 04/04/19 02:00 02:15 04:46 WBC Plt Count Lymphocytes # APTT ABG pH 7.28 L ABG pCO2 53 H ABG pO2 ABG HCO3 ABG Total CO2 27 H ABG O2 Saturation 98.1 H Chloride Carbon Dioxide BUN Glucose POC Glucose (mg/dL) Plasma Lactic Acid Virgilio 3.6 H* Calcium Phosphorus Magnesium AST ALT Creatine Kinase Total Protein Urine Appearance Urine Protein Urine Blood Amorphous Sediment Urine Mucus Urine Opiates Screen Detected H U Benzodiazepines Scrn Detected H 04/04/19 04/04/19 04/04/19 06:02 06:10 07:05 WBC Plt Count 74 L D Lymphocytes # APTT ABG pH ABG pCO2 ABG pO2 ABG HCO3 ABG Total CO2 ABG O2 Saturation Chloride 109 H Carbon Dioxide 19 L BUN 18 H Glucose 218 H POC Glucose (mg/dL) 256 H Plasma Lactic Acid Virgilio Calcium 8.1 L Phosphorus 4.6 H Magnesium 2.4 H AST 130 H ALT 78 H Creatine Kinase Total Protein 6.2 L Urine Appearance Urine Protein Urine Blood Amorphous Sediment Urine Mucus Urine Opiates Screen U Benzodiazepines Scrn 04/04/19 04/04/19 12:11 12:27 WBC Plt Count Lymphocytes # APTT ABG pH 7.34 L ABG pCO2 51 H ABG pO2 118 H ABG HCO3 28 H ABG Total CO2 29 H ABG O2 Saturation 98.3 H Chloride Carbon Dioxide BUN Glucose POC Glucose (mg/dL) 128 H Plasma Lactic Acid Virgilio Calcium Phosphorus Magnesium AST ALT Creatine Kinase Total Protein Urine Appearance Urine Protein Urine Blood Amorphous Sediment Urine Mucus Urine Opiates Screen U Benzodiazepines Scrn - Diagnostic Findings Chest x-ray: image reviewed Assessment and Plan Plan: 1 acute hyperthermia, this is most likely environmental are rather than drug induced or sepsis and the patient is improved with cooling 2 altered mental status secondary to above 3 acute hypoxic/hypercapnic respiratory failure, chest x-ray within normal and the patient is the process of weaning 4 lactic acidosis, improving and the patient's lactic acid level is down to 3.6 5 electrodes imbalance 6 obesity with a BMI of 52 Plan Proceed with completing the sedation holiday and the CPAP trial. I'm going to extubate this patient. We'll have hopefully further information on her past medical history postextubation as the patient should be able to communicate and volunteer more history. The patient is otherwise doing well and she is hemodynamically stable. Continue the process. Continue IV fluids. Cooling has been performed. She is on IV Protonix and she is on subcu heparin. Will follow.
[2019-04-04 14:51] VITALS: BMI 52.6
[2019-04-04 17:29] LABS: Glucose,Whole Blood 113 mg/dL (75-99)
[2019-04-05 00:09] LABS: Glucose,Whole Blood 117 mg/dL (75-99)
[2019-04-05] MEDS: HEPARIN SODIUM,PORCINE 5,000 UNIT/ML 1 ML VIAL SQ SCH ×2 (00:16→08:12)
[2019-04-05] MEDS: VANCOMYCIN 2,000 MG in SODIUM CHLORIDE 0.9% 500 ML 500 ML IVPB SCH (00:16)
[2019-04-05] MEDS: SODIUM CHLORIDE 0.9% 1,000 ML IV SCH ×2 (07:08→11:39)
[2019-04-05] MEDS: INSULIN ASPART (NovoLOG) 100 UNIT/ML VIAL SQ SCH ×4 (07:20→20:28)
--- NOTE | 2019-04-05 07:27 | XR ---
EXAMINATION TYPE: XR chest 1V portable DATE OF EXAM: 04/05/2019 COMPARISON: 04/04/2019 HISTORY: ET and NG tube have been removed TECHNIQUE: Single frontal view of the chest is obtained. FINDINGS: Atherosclerotic change aorta. Mild cardiomegaly but consolidation small effusion. Intersti tial prominence. No pneumothorax. IMPRESSION: Stable pleural-parenchymal changes correlate for CHF. Otherwise consider pneumonia.
[2019-04-05 07:28] LABS: Glucose,Whole Blood 242 mg/dL (75-99)
[2019-04-05 08:03] LABS: Basophils % (A) 0 %; Eosinophils % (A) 1 %; HCT 38.1 % (34.0-46.0); HGB 12.3 gm/dL (11.4-16.0); Lymphocytes # (A) 1.2 k/uL (1.0-4.8); Lymphocytes % (A) 15 %; MCH 30.6 pg (25.0-35.0); MCHC 32.2 g/dL (31.0-37.0); Mean Platelet Volume 7.6; Monocytes # (A) 0.4 k/uL (0-1.0); Monocytes % (A) 5 %; Neutrophils # (A) 6.2 k/uL (1.3-7.7); Neutrophils % (A) 77 %; RBC 4.01 m/uL (3.80-5.40); RDW 14.5 % (11.5-15.5)
[2019-04-05 08:16] LABS: ALT 99 U/L (9-52); AST 105 U/L (14-36); African American GFR (CKD) >90 (>60 ml/min/1.73 sqM); Albumin 3.1 g/dL (3.5-5.0); Alkaline Phosphatase 67 U/L (38-126); Anion Gap 6 mmol/L; Blood Urea Nitrogen 9 mg/dL (7-17); Calcium 7.2 mg/dL (8.4-10.2); Carbon Dioxide 27 mmol/L (22-30); Chloride 107 mmol/L (98-107); Glucose 169 mg/dL (74-99); Magnesium 2.1 mg/dL (1.6-2.3); Platelet Count 59 k/uL (150-450); Potassium 3.1 mmol/L (3.5-5.1); Sodium 140 mmol/L (137-145); Total Protein 5.5 g/dL (6.3-8.2)
[2019-04-05] MEDS ORDERED: Potassium Replacement Protocol 1 EACH MISC MISCELLANE PRN (10:51)
[2019-04-05] MEDS ORDERED: FUROSEMIDE 10 MG/ML 4 ML VIAL IV STA (10:53)
[2019-04-05] MEDS: POTASSIUM CHLORIDE ER 20 MEQ TAB.ER PO SCH ×4 (11:53→20:28)
[2019-04-05 11:59] LABS: Glucose,Whole Blood 155 mg/dL (75-99)
--- NOTE | 2019-04-05 12:04 | P.PN ---
Subjective Progress Note Date: 04/05/19 Principal diagnosis: Sore throat Patient was seen and examined. No acute events overnight. Extubated yesterday. Patient complains of sore throat, probably related to the intubation. She denies any chest pain, shortness of breath or palpitations. Patient reports being back to baseline. Objective - Vital Signs Vital signs: Vital Signs Temp 100.0 F H 04/05/19 08:00 Pulse 81 04/05/19 11:30 Resp 21 04/05/19 11:30 BP 152/73 04/05/19 11:30 Pulse Ox 95 04/05/19 11:30 Intake & Output 04/04/19 04/05/19 04/05/19 18:59 06:59 18:59 Intake Total 2405.407 2360 510 Output Total 1555 1070 285 Balance 922.221 5442 225 Intake: IV 2300 2300 450 Sodium Chloride 0.9% 1, 1800 1800 450 000 ml @ 150 mls/hr IV . Q6H40M [facility] Rx#:[id number] Vancomycin 2,000 mg In 500 500 Sodium Chloride 0.9% 500 ml 500 ml @ 167 mls/hr IVPB Q16H [facility] Rx#: [id number] Intake, IV Titration 105.407 Amount Propofol 1,000 mg In 105.407 Empty Bag 1 bag @ Titrate IV .Q0M [facility]ANCY Rx#: [id number] Oral 60 60 Output: Urine 1555 1070 285 Other: Voiding Method Indwelling Catheter Indwelling Catheter Indwelling Catheter # Bowel Movements 1 1 - Exam General: [non toxic], [no distress], [appears at stated age] Derm: [warm], [dry] Head: [atraumatic], [normocephalic], [symmetric] Eyes: [EOMI], [no lid lag], [anicteric sclera] Mouth: [no lip lesion], [mucus membranes moist] Cardiovascular: [S1S2 reg], [no murmur], [positive DP pulse bilateral] Lungs: [CTA bilateral], [no rhonchi, no rales] , [no accessory muscle use] Abdominal: [soft], [ nontender to palpation], [no guarding], [no appreciable organomegaly] Ext: [no gross muscle atrophy], [no edema], [left transmetatarsal amputation] Neuro: [no focal neuro deficits] Psych: [Alert], [oriented], [appropriate affect] - Labs CBC & Chem 7: 04/05/19 07:44 04/05/19 07:44 Labs: Abnormal Lab Results - Last 24 Hours (Table) 04/04/19 04/04/19 04/04/19 Range/Units 12:11 12:27 17:28 Plt Count (150-450) k/uL ABG pH 7.34 L (7.35-7.45) ABG pCO2 51 H (35-45) mmHg ABG pO2 118 H (83-108) mmHg ABG HCO3 28 H (21-25) mmol/L ABG Total CO2 29 H (19-24) mmol/L ABG O2 Saturation 98.3 H (94-97) % Potassium (3.5-5.1) mmol/L Creatinine (0.52-1.04) mg/dL Glucose (74-99) mg/dL POC Glucose (mg/dL) 128 H 113 H (75-99) mg/dL Calcium (8.4-10.2) mg/dL AST (14-36) U/L ALT (9-52) U/L Creatine Kinase (30-135) U/L Total Protein (6.3-8.2) g/dL Albumin (3.5-5.0) g/dL 04/04/19 04/05/19 04/05/19 Range/Units 23:54 07:14 07:14 Plt Count (150-450) k/uL ABG pH (7.35-7.45) ABG pCO2 (35-45) mmHg ABG pO2 (83-108) mmHg ABG HCO3 (21-25) mmol/L ABG Total CO2 (19-24) mmol/L ABG O2 Saturation (94-97) % Potassium (3.5-5.1) mmol/L Creatinine (0.52-1.04) mg/dL Glucose (74-99) mg/dL POC Glucose (mg/dL) 117 H 242 H (75-99) mg/dL Calcium (8.4-10.2) mg/dL AST (14-36) U/L ALT (9-52) U/L Creatine Kinase 212 H (30-135) U/L Total Protein (6.3-8.2) g/dL Albumin (3.5-5.0) g/dL 04/05/19 04/05/19 Range/Units 07:44 07:44 Plt Count 59 L (150-450) k/uL ABG pH (7.35-7.45) ABG pCO2 (35-45) mmHg ABG pO2 (83-108) mmHg ABG HCO3 (21-25) mmol/L ABG Total CO2 (19-24) mmol/L ABG O2 Saturation (94-97) % Potassium 3.1 L (3.5-5.1) mmol/L Creatinine 0.48 L (0.52-1.04) mg/dL Glucose 169 H (74-99) mg/dL POC Glucose (mg/dL) (75-99) mg/dL Calcium 7.2 L (8.4-10.2) mg/dL AST 105 H (14-36) U/L ALT 99 H (9-52) U/L Creatine Kinase (30-135) U/L Total Protein 5.5 L (6.3-8.2) g/dL Albumin 3.1 L (3.5-5.0) g/dL Microbiology - Last 24 Hours (Table) 04/03/19 21:49 Blood Culture - Preliminary Blood No Growth after 24 hours 04/03/19 21:33 Urine Culture - Final Urine,Catheterized Assessment and Plan Assessment: Heatstroke Acute metabolic encephalopathy likely secondary to hyperthermia Acute hypoxic hypercarbic respiratory failure Lactic acidosis Transaminitis with hypocalcemia and hyperphosphatemia and hypermagnesemia T max 108 Fahrenheit on admission. T-max 100.0 Fahrenheit his morning Plans: Extubated yesterday, O2 per NC to maintain O2 saturation greater than 92%. Telemetry monitoring. Follow pulmonology recommendations. Resolving. Plans: As above. Resolving. Plans: As above. Lactic acid 4.5 to 3.6. Likely secondary to dehydration. ABG showed respiratory metabolic acidosis. Plans: Continue normal saline at 150 mL per hour. Follow repeat lactic acid. No signs of infection, will discontinue vancomycin. AST 130-105, ALT 78-99, phosphorus of 4.6, magnesium 2.4-within normal limits and calcium 8.1-7.2. Possibly related to muscle damage. Renal function is wit hin normal limits. CPK slightly elevated at 212. Plans: Continue IVF as mentioned above. Daily CMP. Monitor and replace electrolytes. Patient admitted for heatstroke, T-max 10 8F on admission, intubated to protect airway, extubated yesterday. She is currently doing well. Will follow pulmono logy recommendations. Likely DC in 1-2 days.
--- NOTE | 2019-04-05 12:54 | P.PN ---
Subjective Progress Note Date: 04/05/19 On today's evaluation of 04/05/2019, the patient is afebrile and the patient is hemodynamically stable. The patient gradually recovered her mentation and she is currently answering question is appropriately. She was extubated yesterday. She saw 40s about 2 by nasal cannula. Chest x-ray showing some pulmonary vessel congestion. The patient is moving all 4 extremities without any limitation. No headaches. No neck stiffness. The patient tells that she is diabetic. She has also history of breast cancer and she has undergone bilateral mastectomy. She had a diabetic wound in the lower extremity and she underwent a transmetatarsal amputation. Otherwise, the patient is doing well. She is afebrile for today as mentioned. No signs of rhabdo. No signs of renal failure. She was extubated yesterday without a major difficulties. Platelet count is down to 59,000. No anemia. Hemoglobin dropped down to 12 Objective - Vital Signs Vital signs: Vital Signs Temp 98.5 F 04/05/19 12:00 Pulse 89 04/05/19 12:00 Resp 18 04/05/19 12:00 BP 151/65 04/05/19 12:00 Pulse Ox 93 L 04/05/19 12:00 Intake & Output 04/04/19 04/05/19 04/05/19 18:59 06:59 18:59 Intake Total 2405.407 2360 1330 Output Total 1555 1070 485 Balance 432.740 6335 845 Intake: IV 2300 2300 770 Sodium Chloride 0.9% 1, 1800 1800 770 000 ml @ 150 mls/hr IV . Q6H40M [facility] Rx#:[id number] Vancomycin 2,000 mg In 500 500 Sodium Chloride 0.9% 500 ml 500 ml @ 167 mls/hr IVPB Q16H [facility] Rx#: [id number] Intake, IV Titration 105.407 Amount Propofol 1,000 mg In 105.407 Empty Bag 1 bag @ Titrate IV .Q0M [facility]ANCY Rx#: [id number] Oral 60 560 Output: Urine 1555 1070 485 Other: Voiding Method Indwelling Catheter Indwelling Catheter Indwelling Catheter # Bowel Movements 1 1 - Exam The patient appeared well nourished and normally developed. Vital signs as documented. Head exam is unremarkable. No scleral icterus or corneal arcus noted. Neck is without jugular venous distension, thyromegaly, or carotid bruits. Carotid upstrokes are brisk bilaterally. Lungs are diminished and there are some crackles in lung bases bilaterally.. Cardiac exam reveals the PMI to be normally sized and situated. Rhythm is regular. First and second heart sounds normal. No murmurs, rubs or gallops. Abdominal exam reveals normal bowel sounds, no masses, no organomegaly and no aortic enlargement. Extremities are nonedematous and both femoral and pedal pulses are normal.Examination of the s kin revealed no evidence of significant rashes, suspicious appearing nevi or other concerning lesions. Neurologic exam is within normal limits and the patient is moving all 4 extremities without any limitation - Labs CBC & Chem 7: 04/05/19 07:44 04/05/19 07:44 Labs: Abnormal Lab Results - Last 24 Hours (Table) 04/04/19 04/04/19 04/05/19 Range/Units 17:28 23:54 07:14 Plt Count (150-450) k/uL Potassium (3.5-5.1) mmol/L Creatinine (0.52-1.04) mg/dL Glucose (74-99) mg/dL POC Glucose (mg/dL) 113 H 117 H (75-99) mg/dL Calcium (8.4-10.2) mg/dL AST (14-36) U/L ALT (9-52) U/L Creatine Kinase 212 H (30-135) U/L Total Protein (6.3-8.2) g/dL Albumin (3.5-5.0) g/dL 04/05/19 04/05/19 04/05/19 Range/Units 07:14 07:44 07:44 Plt Count 59 L (150-450) k/uL Potassium 3.1 L (3.5-5.1) mmol/L Creatinine 0.48 L (0.52-1.04) mg/dL Glucose 169 H (74-99) mg/dL POC Glucose (mg/dL) 242 H (75-99) mg/dL Calcium 7.2 L (8.4-10.2) mg/dL AST 105 H (14-36) U/L ALT 99 H (9-52) U/L Creatine Kinase (30-135) U/L Total Protein 5.5 L (6.3-8.2) g/dL Albumin 3.1 L (3.5-5.0) g/dL 04/05/19 Range/Units 11:55 Plt Count (150-450) k/uL Potassium (3.5-5.1) mmol/L Creatinine (0.52-1.04) mg/dL Glucose (74-99) mg/dL POC Glucose (mg/dL) 155 H (75-99) mg/dL Calcium (8.4-10.2) mg/dL AST (14-36) U/L ALT (9-52) U/L Creatine Kinase (30-135) U/L Total Protein (6.3-8.2) g/dL Albumin (3.5-5.0) g/dL Microbiology - Last 24 Hours (Table) 04/03/19 21:49 Blood Culture - Preliminary Blood No Growth after 24 hours 04/03/19 21:33 Urine Culture - Final Urine,Catheterized Assessment and Plan Plan: 1 acute hyperthermia, this is most likely environmental are rather than drug induced or sepsis and the patient is improved with cooling. I noted that the patient's fever pattern is improved and the patient is normalized and the patient was extubated without any major difficulties 2 altered mental status secondary to above 3 acute hypoxic/hypercapnic respiratory failure, chest x-ray within normal and the patient is the process of weaning 4 lactic acidosis, improving and the patient's lactic acid level is down to 3.6 5 electrodes imbalance, improved and the potassium level needs to be replaced again 6 obesity with a BMI of 52 7 thrombocytopenia. This is of a new onset. I highly doubt TTP Plan Monitor the platelet counts. Stop subcu heparin. Obtain hit antibodies. Highly doubt TTP despite the fever and altered mentation. No evidence of any microangiopathy. Ordered a peripheral smear for schistocytes. Obtain follow-up platelet count. We'll continue to follow. Also give the patient does of Lasix 40 mg IV push.Will keep in the MICU for now.
[2019-04-05 16:55] LABS: Glucose,Whole Blood 186 mg/dL (75-99)
[2019-04-05 20:30] LABS: Glucose,Whole Blood 154 mg/dL (75-99)
[2019-04-06 06:06] LABS: Basophils % (A) 0 %; Eosinophils # (A) 0.1 k/uL (0-0.7); Eosinophils % (A) 2 %; HCT 41.6 % (34.0-46.0); HGB 13.6 gm/dL (11.4-16.0); Lymphocytes # (A) 2.1 k/uL (1.0-4.8); Lymphocytes % (A) 32 %; MCH 30.5 pg (25.0-35.0); MCHC 32.6 g/dL (31.0-37.0); MCV 93.5 fL (80.0-100.0); Mean Platelet Volume 8.3; Monocytes # (A) 0.3 k/uL (0-1.0); Monocytes % (A) 4 %; Neutrophils # (A) 3.9 k/uL (1.3-7.7); Neutrophils % (A) 60 %; RBC 4.45 m/uL (3.80-5.40); RDW 14.8 % (11.5-15.5); WBC 6.5 k/uL (3.8-10.6)
[2019-04-06 06:11] LABS: Platelet Count 67 k/uL (150-450)
[2019-04-06 06:24] LABS: African American GFR (CKD) >90 (>60 ml/min/1.73 sqM); Anion Gap 8 mmol/L; Blood Urea Nitrogen 7 mg/dL (7-17); Calcium 8.2 mg/dL (8.4-10.2); Carbon Dioxide 29 mmol/L (22-30); Chloride 104 mmol/L (98-107); Glucose 168 mg/dL (74-99); Potassium 3.7 mmol/L (3.5-5.1); Sodium 141 mmol/L (137-145)
[2019-04-06 06:58] LABS: Glucose,Whole Blood 167 mg/dL (75-99)
[2019-04-06] MEDS ORDERED: POTASSIUM CHLORIDE ER 20 MEQ TAB.ER PO STA (07:29)
[2019-04-06] MEDS: INSULIN ASPART (NovoLOG) 100 UNIT/ML VIAL SQ SCH ×4 (07:29→21:33)
--- NOTE | 2019-04-06 07:31 | XR ---
EXAMINATION TYPE: XR chest 1V portable DATE OF EXAM: 04/06/2019 Comparison: 04/05/2019 Clinical History: 62 year-old female tube placement Findings: Heart remains mildly enlarged. Mild patchy bibasilar densities trace effusions. Hyperinflation. Mild diffuse interstitial prominence unchanged. Impression: 1. Correlate for stable mild pulmonary vascular congestion superimposed on COPD. 2. Blunted costophrenic angles suggest trace effusions.
[2019-04-06] MEDS: HYDROcodone/APAP 5-325MG 1 EACH TAB PO PRN ×2 (08:05→21:33)
[2019-04-06] MEDS ORDERED: ATENOLOL 25 MG TAB PO SCH (10:15)
[2019-04-06 10:34] LABS: Hemoglobin A1C 8.7 % (4.0-6.0)
[2019-04-06] MEDS ORDERED: ATENOLOL 25 MG TAB PO STA (10:49)
[2019-04-06] MEDS ORDERED: VANCOMYCIN TROUGH DUE 1 EACH MISC MISCELLANE ONE (11:00)
--- NOTE | 2019-04-06 11:33 | P.PN ---
Subjective Progress Note Date: 04/06/19 Principal diagnosis: Acute hypothermia, possible heat stroke. 62-year-old female apparently was a local [place] for [place] celebrations. She was found by police unconscious and was brought to the hospital. Initially was thought to have cardiac event however upon obtaining vital signs she was found to be hyperthermic with rectal temperature of 108 patient was suspected to have a heat stroke she was very dry. Patient was resuscitated given aggressive IV fluid hydration was actively bringing her temperature down. Patient was intubated due to being unconscious unable to protect airways she was found to be in acute hypoxic and hypercapnic respiratory failure. Computed tomography scan of the head showed no acute abnormalities. The chest x-ray is negative. Urine toxin was positive for opiates and benzodiazepines. Otherwise no other street drugs. Overnight the patient was kept on a mechanical ventilator. She was well sedated with propofol and she was, comfortable. She was able to squeeze to deep painful stimulation this morning. A sedation holiday was given. Meanwhile, on a mechanical ventilator with an FiO2 of 50% and PEEP of 5, the patient was also on a tidal volume of 450 with a rate of 16 and the blood gas showed a pH of 7.28 with a pCO2 of 53 and pO2 of 108. Rest of the blood work showed no significant abnormalities in no evidence of rhabdomyoly sis. CPK was within normal limits. White cell count is at 9.8. Platelet count dropped down to 74,000. Urinalysis is negative. No intake of any neuroleptics. No intake of any anticholinergic or exposure to a anticholinergic agents. No signs of any septicemia at this point in time. Morning temperature is down to 99.0. I was able to discontinue the sedation. Assess the patient's mental stat us to check weaning parameters which showed a tidal volume of 494 with a vital Of 1.2 L and RSBI of 34 with a minute ventilation of 12.6. The blood gases while on CPAP showed a pH of 7.34 with a pCO2 of 51 and pO2 of 118.. No other information is available on this patient's history and she came in initially as a [facility] Teresa Candelario Reevaluated today on 04/06/2019, patient remains in the intensive care unit, hemodynamically stable, not requiring any pressors, patient was extub[address] Gonzalez, she is presently on room air, but her O2 saturation is marginal. Chest x-ray did show some pulmonary vascular congestion, patient has good urine output, denies any shortness of breath cough or wheezing, denies any chest pain no nausea no vomiting no abdominal pain. CBC was noted to be normal and elected lites profile is normal. Objective - Vital Signs Vital signs: Vital Signs Temp 98.4 F 04/06/19 08:00 Pulse 79 04/06/19 10:15 Resp 15 04/06/19 10:15 BP 181/80 04/06/19 10:15 Pulse Ox 94 L 04/06/19 10:15 Intake & Output 04/05/19 04/06/19 04/06/19 18:59 06:59 18:59 Intake Total 1830 1200 300 Output Total 3535 0 0 Balance -1705 1200 300 Weight 129 kg Intake: IV 770 Sodium Chloride 0.9% 1, 770 000 ml @ 150 mls/hr IV . Q6H40M [facility] Rx#:[id number] Oral 1060 1200 300 Output: Urine 3535 0 0 Other: Voiding Method Indwelling Catheter Toilet Toilet # Voids 1 # Bowel Movements 1 1 - Exam Physical Exam: Revealed a 63-year-old female in no distress. Very pleasant. Head: Atraumatic, normocephalic. HEENT:[Neck is supple.] [No neck masses.] [No thyromegaly.] [No JVD.] Chest: [Clear throughout, no crackles, no rhonchi, no wheezes.] Cardiac Exam: [Normal S1 and S2, no S3 gallop, no murmur.] Abdomen: [Soft, nontender, no megaly, no rebound, no guarding, normal bowel sounds.] Extremities: [No clubbing, no edema, no cyanosis.] Transmetatarsal amputation noted of the left foot. No evidence of cellulitis, no evidence of infection noted. Neurological Exam: [No focal neurologic deficit.] Alert oriented 3. Psychiatric: Normal mood affect and normal mental status examination. Skin: No rashes. - Labs CBC & Chem 7: 04/06/19 05:47 04/06/19 05:47 Labs: Abnormal Lab Results - Last 24 Hours (Table) 04/05/19 04/05/19 04/05/19 Range/Units 04:44 07:14 11:55 Plt Count (150-450) k/uL Creatinine (0.52-1.04) mg/dL Glucose (74-99) mg/dL POC Glucose (mg/dL) 155 H (75-99) mg/dL Hemoglobin A1c 8.7 H (4.0-6.0) % Calcium (8.4-10.2) mg/dL Creatine Kinase 212 H (30-135) U/L 04/05/19 04/05/19 04/06/19 Range/Units 16:52 20:26 05:47 Plt Count 67 L (150-450) k/uL Creatinine (0.52-1.04) mg/dL Glucose (74-99) mg/dL POC Glucose (mg/dL) 186 H 154 H (75-99) mg/dL Hemoglobin A1c (4.0-6.0) % Calcium (8.4-10.2) mg/dL Creatine Kinase (30-135) U/L 04/06/19 04/06/19 Range/Units 05:47 06:54 Plt Count (150-450) k/uL Creatinine 0.47 L (0.52-1.04) mg/dL Glucose 168 H (74-99) mg/dL POC Glucose (mg/dL) 167 H (75-99) mg/dL Hemoglobin A1c (4.0-6.0) % Calcium 8.2 L (8.4-10.2) mg/dL Creatine Kinase (30-135) U/L Microbiology - Last 24 Hours (Table) 04/03/19 22:15 Gram Stain - Final Sputum Sputum Culture - Final Moraxella(branhamella) catarra 04/03/19 21:49 Blood Culture - Preliminary Blood No Growth after 48 hours Assessment and Plan Assessment: Impression: 1 acute hypothermia, most likely secondary to a heat stroke. 2 acute hypoxic/hypercapnic respiratory failure secondary to above, patient was extubated 2 days ago uneventfully, 3 altered mental status secondary to heatstroke 4 obesity with BMI of 50 to 5 thrombocytopenia, exact etiology is not clear but improving today, continue to hold Plavix. Recommendation: Continue present treatment plan, continue IV fluids, continue diuretics, possibly transfer out of the ICU to a regular medical floor, and if she continues to do well in the next 24 hours, consider discharge planning in the next 24 hours. Time with Patient: Less than 30
[2019-04-06 12:01] LABS: Glucose,Whole Blood 191 mg/dL (75-99)
--- NOTE | 2019-04-06 15:21 | P.PN ---
Subjective Progress Note Date: 04/06/19 patient seen and examined at bedside, feeling good today no episodes of confusion. Patient has been afebrile for approximately 24 hours. denies any shortness of breath or chest pain. Platelet count 67,000 up from 59,000. No acute events overnight Objective - Vital Signs Vital signs: Vital Signs Temp 98.2 F 04/06/19 12:00 Pulse 70 04/06/19 14:00 Resp 14 04/06/19 14:00 BP 154/61 04/06/19 14:00 Pulse Ox 96 04/06/19 14:00 Intake & Output 04/05/19 04/06/19 04/06/19 18:59 06:59 18:59 Intake Total 1830 1200 600 Output Total 3535 0 0 Balance -1705 1200 600 Weight 129 kg Intake: IV 770 Sodium Chloride 0.9% 1, 770 000 ml @ 150 mls/hr IV . Q6H40M [facility] Rx#:[id number] Oral 1060 1200 600 Output: Urine 3535 0 0 Other: Voiding Method Indwelling Catheter Toilet Toilet # Voids 1 1 # Bowel Movements 1 1 - Exam Constitutional: No acute distress, conversant, pleasant Eyes: Anicteric sclerae, moist conjunctiva, no lid-lag, PERRLA ENMT: NC/AT,Oropharynx clear, no erythema, exudates Neck:Supple, FROM, no masses, or JVD, No carotid bruits; No thyromegaly Lungs: Clear to auscultation, Clear to percussion, Normal respiratory effort, no accessory muscle use Cardiovascular: Heart regular in rate and rhythm, No murmurs, gallops, or rubs no peripheral edema Abdominal: Soft Nontender, nom distended, no guarding, no rebound or rigidity, Normoactive bowel sounds No hepatomegaly, No splenomegaly, No palpable mass No abdominal wall hernia noted Skin: Normal temperature, tone, texture, turgor, No induration No subcutaneous nodules, No rash, lesions, No ulcers Extremities: Transmetatarsal amputation of the left foot, no evidence of erythema or swelling Psychiatric: Alert and oriented to person, place and time, Appropriate affect Intact judgement Neuro: Muscles Strength 5/5 in all 4 extremities, Sensation to light touch grossly present throughout, Cranial nerves II-XII grossly intact. No focal sensory deficits - Labs CBC & Chem 7: 04/06/19 05:47 04/06/19 05:47 Labs: Abnormal Lab Results - Last 24 Hours (Table) 04/05/19 04/05/19 04/05/19 Range/Units 04:44 16:52 20:26 Plt Count (150-450) k/uL Creatinine (0.52-1.04) mg/dL Glucose (74-99) mg/dL POC Glucose (mg/dL) 186 H 154 H (75-99) mg/dL Hemoglobin A1c 8.7 H (4.0-6.0) % Calcium (8.4-10.2) mg/dL 04/06/19 04/06/19 04/06/19 Range/Units 05:47 05:47 06:54 Plt Count 67 L (150-450) k/uL Creatinine 0.47 L (0.52-1.04) mg/dL Glucose 168 H (74-99) mg/dL POC Glucose (mg/dL) 167 H (75-99) mg/dL Hemoglobin A1c (4.0-6.0) % Calcium 8.2 L (8.4-10.2) mg/dL 04/06/19 Range/Units 11:59 Plt Count (150-450) k/uL Creatinine (0.52-1.04) mg/dL Glucose (74-99) mg/dL POC Glucose (mg/dL) 191 H (75-99) mg/dL Hemoglobin A1c (4.0-6.0) % Calcium (8.4-10.2) mg/dL Microbiology - Last 24 Hours (Table) 04/03/19 22:15 Gram Stain - Final Sputum Sputum Culture - Final Moraxella(branhamella) catarra 04/03/19 21:49 Blood Culture - Preliminary Blood No Growth after 48 hours Assessment and Plan Plan: Heatstroke Acute metabolic encephalopathy likely secondary to hyperthermia Acute hypoxic hypercarbic respiratory failure Lactic acidosis Transaminitis with hypocalcemia and hyperphosphatemia and hypermagnesemia T max 108 Fahrenheit on admission. T-max 100.0 Fahrenheit his morning Plans: Extubated yesterday, O2 per NC to maintain O2 saturation greater than 92%. Telemetry monitoring. Follow pulmonology recommendations. Resolving. Plans: As above. Resolving. Plans: As above. Lactic acid 4.5 to 3.6. Likely secondary to dehydration. ABG showed respiratory metabolic acidosis. Plans: Continue normal saline at 150 mL per hour. Follow repeat lactic acid. No signs of infection, will discontinue vancomycin. AST 130-105, ALT 78-99, phosphorus of 4.6, magnesium 2.4-within normal limits and calcium 8.1-7.2. Possibly related to muscle damage. Renal function is within normal limits. CPK slightly elevated at 212. Plans: Continue IVF as mentioned above. Daily CMP. Monitor and replace electrolytes. Patient admitted for heatstroke, T-max 10 8F on admission, intubated to protect airway, extubated 04/04/18. She is currently doing well. Will follow pulmonology recommendations. Likely DC tomorrow morning
[2019-04-06] MEDS: VANCOMYCIN 2,000 MG in SODIUM CHLORIDE 0.9% 500 ML 500 ML IVPB SCH (15:38)
[2019-04-06 17:06] LABS: Glucose,Whole Blood 197 mg/dL (75-99)
[2019-04-06 21:33] LABS: Glucose,Whole Blood 246 mg/dL (75-99)
[2019-04-07 07:12] LABS: Glucose,Whole Blood 180 mg/dL (75-99)
[2019-04-07] MEDS: ATENOLOL 50 MG TAB PO SCH (07:32)
[2019-04-07] MEDS: INSULIN ASPART (NovoLOG) 100 UNIT/ML VIAL SQ SCH ×4 (07:33→20:26)
[2019-04-07] MEDS: HYDROcodone/APAP 5-325MG 1 EACH TAB PO PRN ×2 (07:36→20:24)
--- NOTE | 2019-04-07 08:00 | XR ---
EXAMINATION TYPE: XR chest 1V portable DATE OF EXAM: 04/07/2019 COMPARISON: 04/06/2019 HISTORY: Shortness of breath TECHNIQUE: Single frontal view of the chest is obtained. FINDINGS: There is enlargement of the cardiomediastinal silhouette and engorgement of the superior v nathaniel cava/azygos confluence. Mild interstitial pulmonary edema seen. Increasing bibasilar consolidatio ns, right greater than left. No sizable pneumothorax. IMPRESSION: Worsening sequela of congestive heart failure with increasing confluence of bibasilar ai rspace disease that could represent pneumonia or confluent pulmonary edema.
[2019-04-07] MEDS ORDERED: FUROSEMIDE 10 MG/ML 4 ML VIAL IV STA (08:21)
[2019-04-07] MEDS ORDERED: GABAPENTIN 300 MG CAP PO PRN (10:50)
[2019-04-07] MEDS ORDERED: ALPRAZolam 0.5 MG TAB PO PRN (10:50)
[2019-04-07 12:12] LABS: Glucose,Whole Blood 235 mg/dL (75-99)
--- NOTE | 2019-04-07 13:43 | P.PN ---
Subjective Progress Note Date: 04/07/19 Principal diagnosis: Acute hyperthermia, heatstroke 62-year-old female apparently [place] a [place]. She was found by police unconscious and was brought to the hospital. Initially was thought to have cardiac event however upon obtaining vital signs she was found to be hyperthermic with rectal temperature of 108 patient was suspected to have a heat stroke she was very dry. Patient was resuscitated given aggressive IV fluid hydration was actively bringing her temperature down. Patient was intubated due to being unconscious unable to protect airways she was found to be in acute hypoxic and hypercapnic respiratory failure. Computed tomography scan of the head showed no acute abnormalities. The chest x-ray is negative. Urine toxin was positive for opiates and benzodiazepines. Otherwise no other street drugs. Overnight the patient was kept on a mechanical ventilator. She was well sedated with propofol and she was, comfortable. She w as able to squeeze to deep painful stimulation this morning. A sedation holiday was given. Meanwhile, on a mechanical ventilator with an FiO2 of 50% and PEEP of 5, the patient was also on a tidal volume of 450 with a rate of 16 and the blood gas showed a pH of 7.28 with a pCO2 of 53 and pO2 of 108. Rest of the blood work showed no significant abnormalities in no evidence of rhabdomyolysis. CPK was within normal limits. White cell count is at 9.8. Platelet count dropped down to 74,000. Urinalysis is negative. No intake of any neuroleptics. No intake of any anticholinergic or exposure to a anticholinergic agents. No signs of any septicemia at this point in time. Morning temperature is down to 99.0. I was able to discontinue the sedation. Assess the patient's mental status to check weaning parameters which showed a tidal volume of 494 with a vital Of 1.2 L and RSBI of 34 with a minute ventilation of 12.6. The blood gases while on CPAP showed a pH of 7.34 with a pCO2 of 51 and pO2 of 118.. No other information is available on this patient's history and she came in initially as a Maria Teresa Candelario Reevaluated today on 04/06/2019, patient remains in the intensive care unit, hemodynamically stable, not requiring any pressors, patient was extubated [address] Gonzalez, she is presently on room air, but her O2 saturation is marginal. Chest x-ray did show some pulmonary vascular congestion, patient has good urine output, denies any shortness of breath cough or wheezing, denies any chest pain no nausea no vomiting no abdominal pain. CBC was noted to be normal and elected lites profile is normal. The patient is seen today 04/07/2019 in follow-up on the regular medical floor. She is awake and alert in no acute distress. Sitting up at the bedside. She is maintaining O2 saturations in the 90s on 2 L/m per nasal cannula. She is 83% on room air. Chest x-ray shows evidence of fluid volume overload and worsening CHF. She received an additional Lasix 40 mg IV push today. Sputum culture was positive for Moraxella catarrha. Objective - Vital Signs Vital signs: Vital Signs Temp 98.8 F 04/07/19 12:03 Pulse 71 04/07/19 12:03 Resp 18 04/07/19 12:03 BP 174/75 04/07/19 12:10 Pulse Ox 98 04/07/19 12:10 Intake & Output 04/06/19 04/07/19 04/07/19 18:59 06:59 18:59 Intake Total 600 400 Output Total 0 Balance 600 400 Intake: Oral 600 400 Output: Urine 0 Other: Voiding Method Toilet Toilet # Voids 1 2 2 - Exam GENERAL EXAM: Pleasant obese 63-year-old female patient. Alert, active, comfor table in no apparent distress. On 2 L. HEAD: Normocephalic. EYES: Normal reaction of pupils, equal size. NOSE: Clear with pink turbinates. THROAT: No erythema or exudates. NECK: No masses, no JVD. CHEST: No chest wall deformity. LUNGS: Equal air entry with crackles in the posterior bases, diminished CVS: S1 and S2 normal with no audible murmur, regular rhythm. ABDOMEN: No hepatosplenomegaly, normal bowel sounds, no guarding or rigidity. SPINE: No scoliosis or deformity SKIN: No rashes CENTRAL NERVOUS SYSTEM: No focal deficits, tone is normal in all 4 extremities. EXTREMITIES: There is no peripheral edema. No clubbing, no cyanosis. Peripheral pulses are intact. - Labs CBC & Chem 7: 04/06/19 05:47 04/06/19 05:47 Labs: Abnormal Lab Results - Last 24 Hours (Table) 04/05/19 04/06/19 04/06/19 Range/Units 07:44 16:52 21:29 POC Glucose (mg/dL) 197 H 246 H (75-99) mg/dL Heparin-Ind Plt Ab Scrn 0.596 H (<0.4) OD 04/07/19 04/07/19 Range/Units 07:03 11:59 POC Glucose (mg/dL) 180 H 235 H (75-99) mg/dL Heparin-Ind Plt Ab Scrn (<0.4) OD Microbiology - Last 24 Hours (Table) 04/03/19 21:49 Blood Culture - Preliminary Blood No Growth after 72 hours 04/03/19 22:15 Gram Stain - Final Sputum Sputum Culture - Final Moraxella(branhamella) catarra Assessment and Plan Assessment: Impression: 1 acute hyperthermia, most likely secondary to a heat stroke. 2 acute hypoxic/hypercapnic respiratory failure secondary to above, patient was extubated uneventfully, sputum culture positive for Moraxella catarrhalis. 3 altered mental status secondary to heatstroke, recovered 4 obesity with BMI of 52 5 thrombocytopenia, exact etiology is not clear but improving today, continue to hold Plavix. Recommendation: The patient was seen and evaluated by Dr. Padilla. Chest x-ray reviewed. Evidence of fluid volume overload. She was given IV diuretics again today. Antibiotics for the Moraxella. Still requiring 2 L nasal cannula to maintain O2 saturations in the 90s. We'll keep her another 24 hours. Increase her activity as tolerated. Repeat a chest x-ray in the morning. We'll continue to follow. I, the cosigning physician, performed a history & physical examination of the patient. Lungs sounds crackles in the posterior bases, diminished Maintaining good O2 saturations in the 90s on 2 L/m per nasal cannula. I discussed the assessment and plan of care with my nurse practitioner, Jolanta Morrell. I attest to the above note as dictated by her.
--- NOTE | 2019-04-07 14:26 | P.PN ---
Subjective Progress Note Date: 04/07/19 patient seen and examined at bedside, feeling good today no episodes of confusion. Patient has been afebrile for approximately 24 hours. denies any shortness of breath or chest pain. Platelet count upto 157, 000 No acute events overnight Objective - Vital Signs Vital signs: Vital Signs Temp 98.8 F 04/07/19 12:03 Pulse 71 04/07/19 12:03 Resp 18 04/07/19 12:03 BP 174/75 04/07/19 12:10 Pulse Ox 98 04/07/19 12:10 Intake & Output 04/06/19 04/07/19 04/07/19 18:59 06:59 18:59 Intake Total 600 400 Output Total 0 Balance 600 400 Intake: Oral 600 400 Output: Urine 0 Other: Voiding Method Toilet Toilet # Voids 1 2 2 - Exam Constitutional: No acute distress, conversant, pleasant Eyes: Anicteric sclerae, moist conjunctiva, no lid-lag, PERRLA ENMT: NC/AT,Oropharynx clear, no erythema, exudates Neck:Supple, FROM, no masses, or JVD, No carotid bruits; No thyromegaly Lungs: Clear to auscultation, Clear to percussion, Normal respiratory effort, no accessory muscle use Cardiovascular: Heart regular in rate and rhythm, No murmurs, gallops, or rubs no peripheral edema Abdominal: Soft Nontender, nom distended, no guarding, no rebound or rigidity, Normoactive bowel sounds No hepatomegaly, No splenomegaly, No palpable mass No abdominal wall hernia noted Skin: Normal temperature, tone, texture, turgor, No induration No subcutaneous nodules, No rash, lesions, No ulcers Extremities: Transmetatarsal amputation of the left foot, no evidence of erythema or swelling Psychiatric: Alert and oriented to person, place and time, Appropriate affect Intact judgement Neuro: Muscles Strength 5/5 in all 4 extremities, Sensation to light touch grossly present throughout, Cranial nerves II-XII grossly intact. No focal se nsory deficits - Labs CBC & Chem 7: 04/07/19 15:10 04/06/19 05:47 Labs: Abnormal Lab Results - Last 24 Hours (Table) 04/05/19 04/06/19 04/06/19 Range/Units 07:44 16:52 21:29 POC Glucose (mg/dL) 197 H 246 H (75-99) mg/dL Heparin-Ind Plt Ab Scrn 0.596 H (<0.4) OD 04/07/19 04/07/19 Range/Units 07:03 11:59 POC Glucose (mg/dL) 180 H 235 H (75-99) mg/dL Heparin-Ind Plt Ab Scrn (<0.4) OD Microbiology - Last 24 Hours (Table) 04/03/19 21:49 Blood Culture - Preliminary Blood No Growth after 72 hours 04/03/19 22:15 Gram Stain - Final Sputum Sputum Culture - Final Moraxella(branhamella) catarra Assessment and Plan Plan: Heatstroke Acute metabolic encephalopathy likely secondary to hyperthermia Acute hypoxic hypercarbic respiratory failure Acute on chronic CHF exacerbation of unknown type Heparin-induced thrombocytopenia Lactic acidosis Transaminitis with hypocalcemia and hyperphosphatemia and hypermagnesemia T max 108 Fahrenheit on admission. T-max 100.0 Fahrenheit his morning Plans: Extubated 04/04, O2 per NC to maintain O2 saturation greater than 92%. Telemetry monitoring. Follow pulmonology recommendations. Resolving. Plans: As above. Resolving. Plans: As above. Chest x-ray showing fluid overload, patient unable to wean to room air desatted to 83%, continue with supplemental oxygen for now with diuresis with Lasix 40 mg IV BID and resume oral Lasix tomorrow morning Positive heparin-induced platelet antibody screen, heparin discontinued continue to follow platelets Lactic acid 4.5 to 3.6. Likely secondary to dehydration. ABG showed respiratory metabolic acidosis. Plans: Continue normal saline at 150 mL per hour. Follow repeat lactic acid. No signs of infection, will discontinue vancomycin. AST 130-105, ALT 78-99, phosphorus of 4.6, magnesium 2.4-within normal limits and calcium 8.1-7.2. Possibly related to muscle damage. Renal function is within normal limits. CPK slightly elevated at 212. Plans: Continue IVF as mentioned above. Daily CMP. Monitor and replace electrolytes. Patient admitted for heatstroke, T-max 10 8F on admission, intubated to protect airway, extubated 04/04/18. She is currently doing well. Will follow pulmonology recommendations. Likely DC tomorrow morning
[2019-04-07 15:43] LABS: Basophils % (A) 1 %; Eosinophils # (A) 0.1 k/uL (0-0.7); Eosinophils % (A) 2 %; HCT 40.1 % (34.0-46.0); HGB 13.3 gm/dL (11.4-16.0); Lymphocytes # (A) 1.4 k/uL (1.0-4.8); Lymphocytes % (A) 25 %; MCH 30.4 pg (25.0-35.0); MCHC 33.2 g/dL (31.0-37.0); MCV 91.5 fL (80.0-100.0); Mean Platelet Volume 8.6; Monocytes # (A) 0.3 k/uL (0-1.0); Monocytes % (A) 6 %; Neutrophils # (A) 3.6 k/uL (1.3-7.7); Neutrophils % (A) 64 %; RBC 4.39 m/uL (3.80-5.40); RDW 15.3 % (11.5-15.5); WBC 5.7 k/uL (3.8-10.6)
[2019-04-07 15:48] LABS: Platelet Count 126 k/uL (150-450)
[2019-04-07] MEDS ORDERED: FUROSEMIDE 20 MG TAB PO SCH (16:00)
[2019-04-07] MEDS ORDERED: FUROSEMIDE 10 MG/ML 4 ML VIAL IV ONE (17:00)
[2019-04-07 17:24] LABS: Glucose,Whole Blood 183 mg/dL (75-99)
[2019-04-07] MEDS: SYMBICORT 160-4.5 MCG INHALER INHALATION PRN (18:50)
[2019-04-07] MEDS: APIXABAN 5 MG TAB PO SCH (20:23)
[2019-04-07] MEDS: DOXYCYCLINE 100 MG CAP PO SCH (20:23)
[2019-04-07] MEDS: DULoxetine HCL 60 MG CAPSULE.DR PO SCH (20:24)
[2019-04-07 20:32] LABS: Glucose,Whole Blood 222 mg/dL (75-99)
[2019-04-08 07:26] LABS: Glucose,Whole Blood 208 mg/dL (75-99)
[2019-04-08] MEDS: DULoxetine HCL 60 MG CAPSULE.DR PO SCH (07:54)
[2019-04-08] MEDS: ATENOLOL 50 MG TAB PO SCH (07:54)
[2019-04-08] MEDS: APIXABAN 5 MG TAB PO SCH (07:54)
[2019-04-08] MEDS: SYMBICORT 160-4.5 MCG INHALER INHALATION PRN (07:55)
[2019-04-08] MEDS: INSULIN ASPART (NovoLOG) 100 UNIT/ML VIAL SQ SCH ×2 (07:56→12:01)
[2019-04-08] MEDS: DOXYCYCLINE 100 MG CAP PO SCH (07:57)
[2019-04-08] MEDS: FUROSEMIDE 40 MG TAB PO SCH ×2 (08:02→15:18)
[2019-04-08] MEDS ORDERED: FUROSEMIDE 10 MG/ML 4 ML VIAL IV STA (08:22)
--- NOTE | 2019-04-08 08:32 | XR ---
EXAMINATION TYPE: XR chest 2V DATE OF EXAM: 04/08/2019 COMPARISON: 04/07/2019 HISTORY: Congestive heart failure TECHNIQUE: Frontal and lateral views of the chest are obtained. FINDINGS: There is improved aeration of the lungs with patchy bibasilar airspace disease remaining. Minimal pulmonary vascular congestion is seen, improved from the prior. Cardiomediastinal silhouette is enlarged, similar. Mild multilevel degenerative changes of the spine. Pulmonary hyperinflation sug gests underlying COPD. IMPRESSION: Improving congestive heart failure with improved bibasilar consolidations and no minimal pulmonary vascular congestion.
[2019-04-08] MEDS ORDERED: ATORVASTATIN 20 MG TAB PO SCH (09:00)
[2019-04-08] MEDS ORDERED: ANASTROZOLE 1 MG TAB PO SCH (09:00)
[2019-04-08] MEDS ORDERED: POTASSIUM CHLORIDE ER 20 MEQ TAB.ER PO SCH (09:00)
[2019-04-08] MEDS: HYDROcodone/APAP 5-325MG 1 EACH TAB PO PRN (10:02)
[2019-04-08 10:09] LABS: Basophils % (A) 1 %; Eosinophils # (A) 0.2 k/uL (0-0.7); Eosinophils % (A) 3 %; HGB 14.4 gm/dL (11.4-16.0); Lymphocytes # (A) 1.1 k/uL (1.0-4.8); Lymphocytes % (A) 20 %; MCH 31.3 pg (25.0-35.0); MCHC 33.5 g/dL (31.0-37.0); MCV 93.6 fL (80.0-100.0); Mean Platelet Volume 7.6; Monocytes # (A) 0.3 k/uL (0-1.0); Monocytes % (A) 5 %; Neutrophils # (A) 3.9 k/uL (1.3-7.7); Neutrophils % (A) 69 %; Platelet Count 171 k/uL (150-450); RBC 4.59 m/uL (3.80-5.40); RDW 14.3 % (11.5-15.5); WBC 5.7 k/uL (3.8-10.6)
[2019-04-08 10:28] LABS: African American GFR (CKD) >90 (>60 ml/min/1.73 sqM); Anion Gap 12 mmol/L; Blood Urea Nitrogen 11 mg/dL (7-17); Calcium 9.1 mg/dL (8.4-10.2); Carbon Dioxide 32 mmol/L (22-30); Chloride 97 mmol/L (98-107); Glucose 320 mg/dL (74-99); Potassium 3.4 mmol/L (3.5-5.1); Sodium 141 mmol/L (137-145)
[2019-04-08 12:07] LABS: Glucose,Whole Blood 248 mg/dL (75-99)
--- NOTE | 2019-04-08 12:29 | ECHOF ---
Referral Reason:edema MEASUREMENTS -------- HEIGHT: 160.0 cm WEIGHT: 128.8 kg BP: 181/72 RVIDd: 3.2 cm (< 3.3) IVSd: 1.2 cm (0.6 - 1.1) LVIDd: 4.4 cm (3.9 - 5.3) LVPWd: 1.3 cm (0.6 - 1.1) IVSs: 1.7 cm LVIDs: 3.0 cm LVPWs: 2.0 cm LAESV Index (A-L): 18.98 ml/m Ao Diam: 3.3 cm (2.0 - 3.7) AV Cusp: 2.4 cm (1.5 - 2.6) LA Diam: 3.0 cm (2.7 - 3.8) MV EXCURSION: 18.048 mm (> 18.000) MV EF SLOPE: 60 mm/s (70 - 150) EPSS: 0.6 cm MV E Nguyễn: 0.96 m/s MV DecT: 351 ms MV A Nguyễn: 0.99 m/s MV E/A Ratio: 0.97 RAP: 15.00 mmHg RVSP: 33.12 mmHg FINDINGS -------- Sinus rhythm. This was a technically good study. The left ventricular size is normal. There is mild concentric left ventricular hypertrophy. Overa ll left ventricular systolic function is normal with, an EF between 55 - 60 %. The right ventricle is normal in size. The left atrial size is normal. Normal LA size by volume 22+/-6 ml/m2. The right atrial size is normal. Interatrial and interventricular septum intact. Aortic valve is trileaflet and is mildly thickened. The mitral valve leaflets are mildly thickened. Mild mitral annular calcification present. Mild m itral regurgitation is present. Mild tricuspid regurgitation present. Right ventricular systolic pressure is normal at < 35 mmHg. There is no pulmonic regurgitation present. The aortic root size is normal. The inferior vena cava is mildly dilated. There is no pericardial effusion. CONCLUSIONS -------- 1. Sinus rhythm. 2. This was a technically good study. 3. The left ventricular size is normal. 4. There is mild concentric left ventricular hypertrophy. 5. Overall left ventricular systolic function is normal with, an EF between 55 - 60 %. 6. The right ventricle is normal in size. 7. The left atrial size is normal. 8. Normal LA size by volume 22+/-6 ml/m2. 9. The right atrial size is normal. 10. Interatrial and interventricular septum intact. 11. Aortic valve is trileaflet and is mildly thickened. 12. The mitral valve leaflets are mildly thickened. 13. Mild mitral annular calcification present. 14. Mild mitral regurgitation is present. 15. Mild tricuspid regurgitation present. 16. Right ventricular systolic pressure is normal at < 35 mmHg. 17. There is no pulmonic regurgitation present. 18. The aortic root size is normal. 19. The inferior vena cava is mildly dilated. 20. There is no pericardial effusion. PLUMBING MANAGER: Gracie Avalos RDCS
[2019-04-08 12:31] VITALS: RESP 20
[2019-04-08 12:57] VITALS: BP 169/74; PULSE 66; TEMP 98.6
--- NOTE | 2019-04-08 13:28 | P.PN ---
Subjective Progress Note Date: 04/08/19 Principal diagnosis: Acute hyperthermia, heatstroke, acute bronchitis, with sputum cultures positive for Moraxella 62-year-old female apparently was a local fair for march celebrations. She was found by police unconscious and was brought to the hospital. Initially was thought to have cardiac event however upon obtaining vital signs she was found to be hyperthermic with rectal temperature of 108 patient was suspected to have a heat stroke she was very dry. Patient was resuscitated given aggressive IV fluid hydration was actively bringing her temperature down. David solorio was intubated due to being unconscious unable to protect airways she was found to be in acute hypoxic and hypercapnic respiratory failure. Computed tomography scan of the head showed no acute abnormalities. The chest x-ray is negative. Urine toxin was positive for opiates and benzodiazepines. Otherwise no other street drugs. Overnight the patient was kept on a mechanical ventilator. She was well sedated with propofol and she was, comfortable. She was able to squeeze to deep painful stimulation this morning. A sedation holiday was given. Meanwhile, on a mechanical ventilator with an FiO2 of 50% and PEEP of 5, the patient was also on a tidal volume of 450 with a rate of 16 and the blood gas showed a pH of 7.28 with a pCO2 of 53 and pO2 of 108. Rest of the blood work showed no significant abnormalities in no evidence of rhabdomyolysis. CPK was within normal limits. White cell count is at 9.8. Platelet count dropped down to 74,000. Urinalysis is negative. No intake of a ny neuroleptics. No intake of any anticholinergic or exposure to a anticholinergic agents. No signs of any septicemia at this point in time. Morning temperature is down to 99.0. I was able to discontinue the sedation. Assess the patient's mental status to check weaning parameters which showed a tidal volume of 494 with a vital Of 1.2 L and RSBI of 34 with a minute ventilation of 12.6. The blood gases while on CPAP showed a pH of 7.34 with a pCO2 of 51 and pO2 of 118.. No other information is available on this patient's history and she came in initially as a [facility] Candelario Reevaluated today on 04/06/2019, patient remains in the intensive care unit, hemodynamically stable, not requiring any pressors, patient was extubated [address] Gonzalez, she is presently on room air, but her O2 saturation is marginal. Chest x-ray did show some pulmonary vascular congestion, patient has good urine output, denies any shortness of breath cough or wheezing, denies any chest pain no nausea no vomiting no abdominal pain. CBC was noted to be normal and elected lites profile is normal. The patient is seen today 04/07/2019 in follow-up on the regular medical floor. She is awake and alert in no acute distress. Sitting up at the bedside. She is maintaining O2 saturations in the 90s on 2 L/m per nasal cannula. She is 83% on room air. Chest x-ray shows evidence of fluid volume overload and worsening CHF. She received an additional Lasix 40 mg IV push today. Sputum culture was positive for Moraxella catarrhalis On 04/08/2019 patient seen in follow-up on medical surgical floor. She c ontinues to improve, she denies any shortness of breath, or chest pain, she's been tolerating ambulation, on room air, with pulse ox of 95%, afebrile, respirations are even and nonlabored, lung sounds are positive for a few scattered crackles, diminished breath sounds bilaterally, sputum cultures were positive for Moraxella catarrhalis, patient was started on doxycycline, patient received an additional dose of Lasix today, she continues on this dose of oral Lasix. Today her blood pressure is elevated, patient was 201/72, patient is currently on atenolol 50 mg daily. Echocardiogram has been completed, showing mild concentric left ventricular hypertrophy, with an EF between 55-60%, mild MR, mild TR, no pulmonary hypertension, with right-sided pressures of less than 35 mmHg. No pericardial effusion. Objective - Vital Signs Vital signs: Vital Signs Temp 98.6 F 04/08/19 12:33 Pulse 66 04/08/19 12:33 Resp 20 04/08/19 12:33 BP 169/74 04/08/19 12:51 Pulse Ox 95 04/08/19 12:51 Intake & Output 04/07/19 04/08/19 04/08/19 18:59 06:59 18:59 Intake Total 750 Balance 750 Intake: Oral 750 Other: Voiding Method Toilet Toilet Toilet # Voids 2 2 3 - Exam GENERAL EXAM: Alert, pleasant, 63-year-old white female patient, comfortable in no apparent distress. HEAD: Normocephalic/atraumatic. EYES: Normal reaction of pupils, equal size. Conjunctiva pink, sclera white. NOSE: Clear with pink turbinates. THROAT: No erythema or exudates. NECK: No masses, no JVD, no thyroid enlargement, no adenopathy. CHEST: No chest wall deformity. Symmetrical expansion. LUNGS: diminished air entry with a few basilar crackles, wheeze, rhonchi or dullness. CVS: Regular rate and rhythm, normal S1 and S2, no gallops, no murmurs, no rubs ABDOMEN: Soft, nontender. No hepatosplenomegaly, normal bowel sounds, no guarding or rigidity. EXTREMITIES: No clubbing, no edema, no cyanosis, 2+ pulses and upper and lower extremities. MUSCULOSKELETAL: Muscle strength and tone normal. SPINE: No scoliosis or deformity SKIN: No rashes CENTRAL NERVOUS SYSTEM: Alert and oriented -3. No focal deficits, tone is normal in all 4 extremities. PSYCHIATRIC: Alert and oriented -3. Appropriate affect. Intact judgment and insight. - Labs CBC & Chem 7: 04/08/19 09:20 04/08/19 09:20 Labs: Abnormal Lab Results - Last 24 Hours (Table) 04/07/19 04/07/19 04/07/19 Range/Units 15:10 17:15 20:24 Plt Count 126 L D (150-450) k/uL Potassium (3.5-5.1) mmol/L Chloride (98-107) mmol/L Carbon Dioxide (22-30) mmol/L Glucose (74-99) mg/dL POC Glucose (mg/dL) 183 H 222 H (75-99) mg/dL 04/08/19 04/08/19 04/08/19 Range/Units 07:11 09:20 11:51 Plt Count (150-450) k/uL Potassium 3.4 L (3.5-5.1) mmol/L Chloride 97 L (98-107) mmol/L Carbon Dioxide 32 H (22-30) mmol/L Glucose 320 H (74-99) mg/dL POC Glucose (mg/dL) 208 H 248 H (75-99) mg/dL Microbiology - Last 24 Hours (Table) 04/03/19 21:49 Blood Culture - Preliminary Blood No Growth after 96 hours Assessment and Plan Plan: Assessment: 1 acute hyperthermia, most likely secondary to a heat stroke. 2 acute hypoxic/hypercapnic respiratory failure secondary to above, patient was extubated uneventfully, sputum culture positive for Moraxella catarrhalis. 3 altered mental status secondary to heatstroke, recovered 4 obesity with BMI of 52 5 thrombocytopenia, exact etiology is not clear but improving today, continue to hold Plavix. Plan: From pulmonary perspective patient stable, she could be considered for discharge home today on 10 day course of doxycycline for evidence of Moraxella catarrhalis tracheobronchitis. No couplets or shortness of breath, chest pain, she was given an additional dose of IV Lasix today, continues on maintenance dose of oral Lasix, she is on room air, awaiting ambulation. Echocardiogram results have been noted. Blood pressure management per primary care team I performed a history & physical examination of the patient and discussed their management with my nurse practitioner, Delores Roberson. I reviewed the nurse practitioner's note and agree with the documented findings and plan of care. Lung sounds are positive for diminished breath sounds. The findings and the impression was discussed with the patient. I attest to the documentation by the nurse practitioner. Time with Patient: Less than 30
--- NOTE | 2019-04-08 13:40 | P.DS ---
Providers Date of admission: 04/03/19 23:25 Expected date of discharge: 04/08/19 Attending physician: Vaughn De Guzman MD Consults: 04/03/19 23:24 Consult Physician Urgent Consulting Provider: Selena Gonzalez Consult Reason/Comments: Heat stroke, respiratory failure Do you want consulting provider notified?: Already Contacted Primary care physician: Stated None - Discharge Diagnosis(es) (1) Heat stroke Status: Acute (2) Acute respiratory failure with hypoxia Status: Acute (3) Acute diastolic CHF (congestive heart failure), NYHA class 2 Status: Acute (4) Metabolic encephalopathy Status: Acute (5) Heparin induced thrombocytopenia (HIT) Status: Acute (6) Lactic acidosis Status: Acute (7) Pneumonia Status: Acute (8) Type 2 diabetes mellitus with hyperglycemia Status: Acute Hospital Course: The patient is a 63-year-old female that was admitted for heat stroke after she was found unconscious and brought to the hospital by police. The patient was noted to be metabolic encephalopathy secondary to her heat stroke and ongoing hyperthermia with a rectal temperature reaching as high as 108, patient was placed on IV fluids and was subsequently intubated to protect her airway. A computed tomography scan of her head showed no acute intracranial abnormalities and chest x-ray was negative, urine toxicology was positive for opiates and benzodiazepines. The patient was subsequently extubated I'm but continued to be in acute respiratory failure of multifactorial etiology secondary to acute diastolic CHF superimposed on an pneumonia as her chest x- rays persistently showed indications of CHF and bibasilar consolidations and the patient had persistent edema. She was started on Lasix IV and diuresed well and was switched to oral Lasix, sputum cultures are positive for Moraxella catarralis and the patient was started on doxycycline. The patient stated no previous history of CHF but was on oral Lasix at home, echocardiogram performed here showed a preserved LVEF of 55-60%. The patient was noted to have diminished platelets after being initiated on heparin that they got as low as 59,000 heparin was discontinued and hit antibody was positive, and there is no indication for transfusion in the patient's platelets responded accordingly and was normal and time of discharge, The patient was subsequently discharged home in stable condition. This discharge process took approximately 35 minutes Focused exam Respiratory: Diminished in the bases with faint bibasilar crackles Cardiac: Regular rate and rhythm no murmurs or gallops, +1.5 pitting edema Patient Condition at Discharge: Good Plan - Discharge Summary Discharge Rx Participant: Yes New Discharge Prescriptions: New Doxycycline [Vibramycin] 100 mg PO BID #20 cap Furosemide [Lasix] 40 mg PO BID@0900,1600 #60 tab metFORMIN HCL [metFORMIN HCL ER Gastric] 1,000 mg PO BID #60 tab Continue Potassium Chloride ER [K-Dur 20] 20 meq PO DAILY ALPRAZolam [Xanax] 0.5 mg PO HS PRN PRN Reason: Anxiety HYDROcodone/APAP 7.5-325MG [[place] 7.5-325] 1 tab PO DAILY PRN PRN Reason: Pain/Discomfort Atorvastatin [Lipitor] 20 mg PO DAILY Insuln Asp Prt/Insulin Aspart [NovoLOG MIX 70-30 VIAL] 10 - 12 unit SQ BID DULoxetine HCL [Cymbalta] 60 mg PO BID glipiZIDE [Glucotrol] 10 mg PO AC-BRKFST Apixaban [Eliquis] 5 mg PO BID Anastrozole [Arimidex] 1 mg PO DAILY Gabapentin 600 mg PO BID PRN PRN Reason: Pain Budesonide/Formoterol Fumarate [Symbicort 160-4.5 Mcg Inhaler] 2 puff INHALATION RT-BID PRN PRN Reason: Shortness Of Breath Atenolol [Tenormin] 50 mg PO DAILY Discontinued Furosemide [Lasix] 20 mg PO BID Discharge Medication List ALPRAZolam [Xanax] 0.5 mg PO HS PRN 04/05/19 [History] HYDROcodone/APAP 7.5-325MG [[place] 7.5-325] 1 tab PO DAILY PRN 04/05/19 [History] Potassium Chloride ER [K-Dur 20] 20 meq PO DAILY 04/05/19 [History] Anastrozole [Arimidex] 1 mg PO DAILY 04/06/19 [History] Apixaban [Eliquis] 5 mg PO BID 04/06/19 [History] Atenolol [Tenormin] 50 mg PO DAILY 04/06/19 [History] Atorvastatin [Lipitor] 20 mg PO DAILY 04/06/19 [History] Budesonide/Formoterol Fumarate [Symbicort 160-4.5 Mcg Inhaler] 2 puff INHALATION RT-BID PRN 04/06/19 [History] DULoxetine HCL [Cymbalta] 60 mg PO BID 04/06/19 [History] Gabapentin 600 mg PO BID PRN 04/06/19 [History] Insuln Asp Prt/Insulin Aspart [NovoLOG MIX 70-30 VIAL] 10 - 12 unit SQ BID 04/06/19 [History] glipiZIDE [Glucotrol] 10 mg PO AC-BRKFST 04/06/19 [History] Doxycycline [Vibramycin] 100 mg PO BID #20 cap 04/08/19 [Rx] Furosemide [Lasix] 40 mg PO BID@0900,1600 #60 tab 04/08/19 [Rx] metFORMIN HCL [metFORMIN HCL ER Gastric] 1,000 mg PO BID #60 tab 04/08/19 [Rx] Follow up Appointment(s)/Referral(s): Reese Weldon DO [REFERRING] - 04/15/19 12:30 pm Patient Instructions/Handouts: Heatstroke (DC), Type 2 Diabetes in the Older Adult (DC) Activity/Diet/Wound Care/Special Instructions: Activity as tolerated. Discharge Disposition: HOME SELF-CARE
== END 2019-04-08 16:47 | disposition home or self-care (01) | DRG 922 ==
LOC: EDBD → EC 20:40 → 2SICU 23:25 → EDBD 23:25 → 4MS4W 04-06 15:49
PROVIDERS: ADMIT Internal Medicine; ATTEND Internal Medicine
PROC: 5A1935Z Respiratory Ventilation, Less than 24 Consecutive Hours (ICD-10-PCS; principal; 2019-04-03)
PROC: 0BH17EZ Insertion of Endotracheal Airway into Trachea, Via Natural or Artificial Opening (ICD-10-PCS; 2019-04-03)
PROC: 0D9670Z Drainage of Stomach with Drainage Device, Via Natural or Artificial Opening (ICD-10-PCS; 2019-04-04)
DX: T67.0XXA Heatstroke and sunstroke, initial encounter (principal); J96.01 Acute respiratory failure with hypoxia; J96.02 Acute respiratory failure with hypercapnia; G93.41 Metabolic encephalopathy; I50.31 Acute diastolic (congestive) heart failure; J18.9 Pneumonia, unspecified organism; E87.2 Acidosis; Z68.43 Body mass index [BMI] 50.0-59.9, adult; D75.82 Heparin induced thrombocytopenia (HIT); E66.01 Morbid (severe) obesity due to excess calories; E11.65 Type 2 diabetes mellitus with hyperglycemia; E83.39 Other disorders of phosphorus metabolism; E83.42 Hypomagnesemia; E83.51 Hypocalcemia; E83.41 Hypermagnesemia; T88.4XXA Failed or difficult intubation, initial encounter; E86.0 Dehydration; G47.33 Obstructive sleep apnea (adult) (pediatric); I45.10 Unspecified right bundle-branch block; X30.XXXA Exposure to excessive natural heat, initial encounter; R03.0 Elevated blood-pressure reading, without diagnosis of hypertension; Z79.811 Long term (current) use of aromatase inhibitors; Z79.01 Long term (current) use of anticoagulants; Z79.4 Long term (current) use of insulin; Z79.51 Long term (current) use of inhaled steroids; Z79.899 Other long term (current) drug therapy; Z90.13 Acquired absence of bilateral breasts and nipples; Z85.3 Personal history of malignant neoplasm of breast; Z89.422 Acquired absence of other left toe(s); Z88.0 Allergy status to penicillin
CPT/HCPCS: 31500; 36415; 36600; 70450; 71045; 71046; 80048; 80053; 80306; 81001; 82550; 82805; 83036; 83605; 83735; 83880; 84100; 84132; 84484; 85025; 85027; 85610; 85730; 86022; 86850; 86900; 86901; 87040; 87070; 87086; 87205; 93005; 93306; 94002; 94003; 94640; 94760; 96361; 96365; 96366; 96368; 96375; 96376; 99291; 99292